=== PATIENT | male | born 1970 | race Caucasian/White ===

== ENCOUNTER 2017-09-12 11:39 | Inpatient (IN) | payer MEDICAID, SELFPAY ==
[2017-09-12 11:43] VITALS: BP 134/68; PULSE 123; RESP 24; TEMP 36.7; O2SAT 93; BMI 80.4
[2017-09-12 11:53] VITALS: BP 131/64; PULSE 123; RESP 18; O2SAT 96
[2017-09-12] MEDS: 0.9% Normal Saline 1,000 ML 15 ML IV (12:50)
[2017-09-12 12:57] LABS: Absolute Lymphocyte Count 0.67 X10^3/ul (0.83-4.51); Absolute Neutrophil Count 7.6 X10^3/uL (2.0-7.7); Basophil# 0.01 X10^3/uL; Basophil% 0.1 % (0-1); Eosinophil# 0.04 X10^3/uL; Eosinophils% 0.5 % (0-5); Hematocrit 46.2 % (40-54); Hemoglobin 15.1 g/dl (13.0-16.5); Lymphocyte # 0.67 X10^3/ul (4.0); Lymphocyte % 7.6 % (19-41); Mean Corp Hgb Conc 32.7 g/gl (32-36); Mean Corpuscular Hgb 28.3 pg (27.0-32.0); Mean Corpuscular Volume 86.7 fL (80-94); Mean Platelet Vol. 9.1 fl (6.2-12.0); Monocyte# 0.42 X10^3/uL; Monocyte% 4.8 % (0-10); Neutrophil # 7.61 X10^3/uL (2.7-7.7); Neutrophil % 86.9 % (47-70); POSITIVE COUNT NO; POSITIVE DIFFERENTIAL NO; POSITIVE MORPHOLOGY NO; Platelet Count 179 K/mm3 (150-450); RBC Distribution Width CV 14.9 % (11.6-14.6); RBC Distribution Width SD 47.2 fl (35.1-43.9); Red Blood Count 5.33 M/mm3 (4.6-6.2); White Blood Count 8.8 K/mm3 (4.4-11.0)
[2017-09-12 13:13] LABS: Anion Gap 9 (5-15); BUN 15 mg/dL (7-18); BUN/Creat Ratio 18.7 RATIO (10-20); Calcium,Total 8.9 mg/dL (8.5-10.1); Chloride 96 mmol/L (98-107); EST Glomerular Filtration Rate 111 mL/min (>60); Est Glom Filt Rate - Afr Amer 134 mL/min (>60); Estimated Creatinine Clearance 121.67 ml/min; Glucose 66 mg/dL (74-106); Potassium 3.5 mmol/L (3.5-5.1); Sodium Level 141 mmol/L (136-145)
[2017-09-12] MEDS: Clindamycin 600 MG/50 ML BAG 100 MG IV (13:18)
[2017-09-12] MEDS: Dextrose 50%-Water 25 GM/50 ML DISP.SYRIN IV (13:54)
[2017-09-12 14:36] VITALS: BP 133/91; PULSE 102; RESP 20; O2SAT 94
--- NOTE | 2017-09-12 14:46 | NURSING ---
DR ARTHUR FOR DR LEMOS
[2017-09-12 15:00] VITALS: BP 143/86; PULSE 92; RESP 25; TEMP 36.7; O2SAT 98
[2017-09-12 15:10] LABS: Bedside Glucose 114 mg/dL (70-110)
--- NOTE | 2017-09-12 15:15 | PCM.HP.STD ---
Problem List (1) Debility Status: Acute (2) Candidiasis Status: Acute (3) Cellulitis Status: Acute History of Present Illness Date of Admission: 09/12/17 Chief Complaint: weakness The patient is a 46 year old M presents to the hospital with weakness. Patient's performance status at baseline is very poor with the patient is only able to ambulate back and forth to bathroom but he requires assistance doing that. Patient was on the toilet today and was on there for 3040 minutes and his legs felt numb and he was unable to get up on his own. EMS was called and patient was brought to the hospital. In the emergency room patient was found to have erythema on his left leg and did receive clindamycin for suspected cellulitis. Patient does state that he lies primarily on his left side. Patient is for the most part bedbound. [] Past Medical History Past Medical History (Chronic Problems): Chronic Problems Polysubstance abuse (Chronic) Alcohol abuse (Chronic) Morbid obesity with BMI of 70 and over, adult (Chronic) BMI 82 260 kg Chronic acquired lymphedema (Chronic) Medical History: Medical History (Last Updated 09/12/17 @ 15:18 by Patrick Andrews DO) Lymphedema I89.0 Morbid obesity E66.01 Allergies No Known Allergies Allergy (Verified 09/12/17 11:42) Home Medications: Ambulatory Orders Medication Instructions Recorded Cholecalciferol (Vitamin D3) 50,000 units PO QWEEK 09/12/17 [Vitamin D3] Surgical History: no surgical history Psychiatric History: No pertinent psych hx Smoking Status: Former smoker - *Family History Maternal History Items: No pertinent history, - - no heart disease Paternal History Items: No pertinent history Review of Systems Constitutional: Reports: Chills. Denies: Anorexia, Fever Eyes: Denies: Blurred vision, Double vision HEENT: Denies: Head Aches, Sinus Congestion, Sinus Drainage Cardiovascular: Denies: Chest Pain, Palpitations Respiratory: Reports: - - Is noted to snore. Questionable apneic episodes have been witnessed by other family members.. Denies: Cough, Shortness of breath at rest, Sputum production Gastrointestinal: Denies: Abdominal Pain, Nausea, Vomiting Genitourinary: Denies: Dysuria Musculoskeletal: Reports: - - left leg pain Skin: Reports: - - lymphedema and chronic skin changes of bilateral lower extremitie Neurological: Denies: Balance problems, Blurred vision, Double vision Psychiatric: Denies: Anxiety, Depression Hematologic/ Lymphatic: Denies: Easy Bruising, Easy Bleeding, Hx of blood clot VTE Information - Inpt Only VTE Present on Admission: No VTE Pharm Prophylaxis ordered?: Yes Patient Problems: Active and Suspected Problems Debility (Acute) Candidiasis (Acute) - Physical Exam General: Alert, Cooperative, No apparent distress, - - Appears much older than stated age HEENT: Atraumatic, Normocephalic Oral: Moist Mucosa, No Gingival or Mucosal Lesions/ Ulcerations Neck: No Nodes, Thyroid Normal Size and Texture Lungs: Clear to auscultation, Normal air movement, No rhonchi, No wheeze Cardiovascular: Regular rate, Regular Rhythm, Normal S1, Normal S2, No murmurs Abdomen: Bowel Sounds Present, Soft, Non Tender, Non-Distended, No Hepato-splenomegaly Extremities: No Calf Tenderness, Edema Skin: - - Appears to be a stage II pressure ulcer over his left lateral leg. Patient was unable to turn on his side given his girth and frailty so was unable to appreciate that. I cannot say definitively patient had cellulitis or not. Patient had candidal infections under his pannus, inguinal folds and axillae. Lichenification of his lower extremities bilaterally with some malodorous component. Musculoskeletal: No Muscle Wasting, Tenderness - Diffusely in his legs. Neurological: Neuro grossly intact, Sensory exam intact to light touch and pain Psych/Mental Status: Normal Affect, Appropriate Vital Signs Temp Pulse Resp BP Pulse Ox 36.7 C 92 25 H 143/86 H 98 09/12/17 15:00 09/12/17 15:00 09/12/17 15:00 09/12/17 15:09/12/17 15:00 Oxygen Flow Rate (L/min) 4 Oxygen Delivery Method Nasal Cannula Weight: 254.4 kg Body Mass Index (BMI) 80.4 Finger Stick Blood Glucose 114 Laboratory Tests Past 24 Hrs 09/12/17 09/12/17 12:40 12:40 WBC 8.8 RBC 5.33 Hgb 15.1 Hct 46.2 MCV 86.7 MCH 28.3 MCHC 32.7 RDW 14.9 H RDW Differential 47.2 H Plt Count 179 MPV 9.1 Immature Gran % (Auto) 0.100 Neut % (Auto) 86.9 H Lymph % (Auto) 7.6 L [place] % (Auto) 4.8 Eos % (Auto) 0.5 Baso % (Auto) 0.1 Absolute Neuts (auto) 7.6 Absolute Lymphs (auto) 0.67 L Total Counted Not Reportable Sodium 141 Potassium 3.5 Chloride 96 L Carbon Dioxide 36.0 H Anion Gap 9 BUN 15 Creatinine 0.80 Estim Creat Clear Calc 121.67 Est GFR (MDRD) Af Amer 134 Est GFR (MDRD) Non-Af 111 BUN/Creatinine Ratio 18.7 Glucose 66 L Calcium 8.9 POC Glucose 09/12/17 15:07 POC Glucose 114 H Assessment/Plan All Active Problems Debility (Acute) Candidiasis (Acute) Cellulitis and abscess of leg (Acute) Cellulitis (Acute) 1. Left lower extremity cellulitis This is presumed but this certainly could just be a stage II pressure ulcer Patient received clindamycin in the emergency room. I will continue with that but if it appears that this is just more of a pressure ulcer then I would discontinue antibiotics altogether. 2. Suspected stage II pressure ulcer of the left lateral leg Patient is essentially bedbound and primarily confined himself to lying on his left side. Given the area that is concerning for pressure ulcer is by him laying on his side and also his massive size Try to turn and reposition every 2 hours and certainly cumbersome given his large size. Wound care 3. Bilateral lymphedema of lower extremities Patient also has significant lichenification of his lower extremities as well Patient states that he has had numerous treatments in and be enrolled in inpatient program for this but to no avail through his insurance Consult wound care for further recommendations My feeling that patient may have some underlying right heart failure possibly related with untreated sleep apnea that may be potential underlying cause of his lymphedema. 4. Morbid obesity Complicating care. Questionable motivation for patient to actually get better and have follow-ups. Though some this is limited just given his poor performance status. Suspect patient has underlying sleep apnea and recommended a sleep study which is previously been recommended for him patient states that he is simply not gotten around to it. I doubt this is a new recommendation but patient makes it appears of the chest from the just happened just recently. 5. Debility and failure to thrive Spoke with patient about physical and occupational therapies. Patient is just too weak to return home at this time. He does express interest in going to a short-term shelter facility for further rehab. 6. DVT prophylaxis with Lovenox Code Visit Inpatient E&M: 27445 Init Hosp L3
--- NOTE | 2017-09-12 15:17 | NURSING ---
MED SURG LLE CELLULITIS SANDHYA
--- NOTE | 2017-09-12 15:25 | HP.PCM_ITS ---
Problem List (1) Debility Status: Acute (2) Candidiasis Status: Acute (3) Cellulitis Status: Acute History of Present Illness Date of Admission: 09/12/17 Chief Complaint: weakness The patient is a 46 year old M presents to the hospital with weakness. Patient' s performance status at baseline is very poor with the patient is only able to ambulate back and forth to bathroom but he requires assistance doing that. Patient was on the toilet today and was on there for 3040 minutes and his legs felt numb and he was unable to get up on his own. EMS was called and patient was brought to the hospital. In the emergency room patient was found to have erythema on his left leg and did receive clindamycin for suspected cellulitis. Patient does state that he lies primarily on his left side. Patient is for the most part bedbound. [] Past Medical History Past Medical History (Chronic Problems): Chronic Problems Polysubstance abuse (Chronic) Alcohol abuse (Chronic) Morbid obesity with BMI of 70 and over, adult (Chronic) BMI 82 260 kg Chronic acquired lymphedema (Chronic) Medical History: Medical History (Last Updated 09/12/17 @ 15:18 by Patrick Andrews DO) Lymphedema I89.0 Morbid obesity E66.01 Allergies No Known Allergies Allergy (Verified 09/12/17 11:42) Home Medications: Ambulatory Orders Medication Instructions Recorded Cholecalciferol (Vitamin D3) 50,000 units PO QWEEK 09/12/17 [Vitamin D3] Surgical History: no surgical history Psychiatric History: No pertinent psych hx Smoking Status: Former smoker - *Family History Maternal History Items: No pertinent history, - - no heart disease Paternal History Items: No pertinent history Review of Systems Constitutional: Reports: Chills. Denies: Anorexia, Fever Eyes: Denies: Blurred vision, Double vision HEENT: Denies: Head Aches, Sinus Congestion, Sinus Drainage Cardiovascular: Denies: Chest Pain, Palpitations Respiratory: Reports: - - Is noted to snore. Questionable apneic episodes have been witnessed by other family members.. Denies: Cough, Shortness of breath at rest, Sputum production Gastrointestinal: Denies: Abdominal Pain, Nausea, Vomiting Genitourinary: Denies: Dysuria Musculoskeletal: Reports: - - left leg pain Skin: Reports: - - lymphedema and chronic skin changes of bilateral lower extremitie Neurological: Denies: Balance problems, Blurred vision, Double vision Psychiatric: Denies: Anxiety, Depression Hematologic/ Lymphatic: Denies: Easy Bruising, Easy Bleeding, Hx of blood clot VTE Information - Inpt Only VTE Present on Admission: No VTE Pharm Prophylaxis ordered?: Yes Patient Problems: Active and Suspected Problems Debility (Acute) Candidiasis (Acute) - Physical Exam General: Alert, Cooperative, No apparent distress, - - Appears much older than stated age HEENT: Atraumatic, Normocephalic Oral: Moist Mucosa, No Gingival or Mucosal Lesions/ Ulcerations Neck: No Nodes, Thyroid Normal Size and Texture Lungs: Clear to auscultation, Normal air movement, No rhonchi, No wheeze Cardiovascular: Regular rate, Regular Rhythm, Normal S1, Normal S2, No murmurs Abdomen: Bowel Sounds Present, Soft, Non Tender, Non-Distended, No Hepato- splenomegaly Extremities: No Calf Tenderness, Edema Skin: - - Appears to be a stage II pressure ulcer over his left lateral leg. Patient was unable to turn on his side given his girth and frailty so was unable to appreciate that. I cannot say definitively patient had cellulitis or not. Patient had candidal infections under his pannus, inguinal folds and axillae. Lichenification of his lower extremities bilaterally with some malodorous component. Musculoskeletal: No Muscle Wasting, Tenderness - Diffusely in his legs. Neurological: Neuro grossly intact, Sensory exam intact to light touch and pain Psych/Mental Status: Normal Affect, Appropriate Vital Signs Temp Pulse Resp BP Pulse Ox 36.7 C 92 25 H 143/86 H 98 09/12/17 15:00 09/12/17 15:00 09/12/17 15:00 09/12/17 15:09/12/17 15:00 Oxygen Flow Rate (L/min) 4 Oxygen Delivery Method Nasal Cannula Weight: 254.4 kg Body Mass Index (BMI) 80.4 Finger Stick Blood Glucose 114 Laboratory Tests Past 24 Hrs 09/12/17 09/12/17 12:40 12:40 WBC 8.8 RBC 5.33 Hgb 15.1 Hct 46.2 MCV 86.7 MCH 28.3 MCHC 32.7 RDW 14.9 H RDW Differential 47.2 H Plt Count 179 MPV 9.1 Immature Gran % (Auto) 0.100 Neut % (Auto) 86.9 H Lymph % (Auto) 7.6 L [place] % (Auto) 4.8 Eos % (Auto) 0.5 Baso % (Auto) 0.1 Absolute Neuts (auto) 7.6 Absolute Lymphs (auto) 0.67 L Total Counted Not Reportable Sodium 141 Potassium 3.5 Chloride 96 L Carbon Dioxide 36.0 H Anion Gap 9 BUN 15 Creatinine 0.80 Estim Creat Clear Calc 121.67 Est GFR (MDRD) Af Amer 134 Est GFR (MDRD) Non-Af 111 BUN/Creatinine Ratio 18.7 Glucose 66 L Calcium 8.9 POC Glucose 09/12/17 15:07 POC Glucose 114 H Assessment/Plan All Active Problems Debility (Acute) Candidiasis (Acute) Cellulitis and abscess of leg (Acute) Cellulitis (Acute) 1. Left lower extremity cellulitis * This is presumed but this certainly could just be a stage II pressure ulcer * Patient received clindamycin in the emergency room. I will continue with that but if it appears that this is just more of a pressure ulcer then I would discontinue antibiotics altogether. 2. Suspected stage II pressure ulcer of the left lateral leg * Patient is essentially bedbound and primarily confined himself to lying on his left side. Given the area that is concerning for pressure ulcer is by him laying on his side and also his massive size * Try to turn and reposition every 2 hours and certainly cumbersome given his large size. * Wound care 3. Bilateral lymphedema of lower extremities * Patient also has significant lichenification of his lower extremities as well * Patient states that he has had numerous treatments in and be enrolled in inpatient program for this but to no avail through his insurance * Consult wound care for further recommendations * My feeling that patient may have some underlying right heart failure possibly related with untreated sleep apnea that may be potential underlying cause of his lymphedema. 4. Morbid obesity * Complicating care. * Questionable motivation for patient to actually get better and have follow- ups. Though some this is limited just given his poor performance status. * Suspect patient has underlying sleep apnea and recommended a sleep study which is previously been recommended for him patient states that he is simply not gotten around to it. I doubt this is a new recommendation but patient makes it appears of the chest from the just happened just recently. 5. Debility and failure to thrive * Spoke with patient about physical and occupational therapies. * Patient is just too weak to return home at this time. He does express interest in going to a short-term jail facility for further rehab. 6. DVT prophylaxis with Lovenox Code Visit Inpatient E&M: [id number] Init Hosp L3
--- NOTE | 2017-09-12 15:49 | ECHOCS_ITS ---
Reason For Study: Edema Procedure This was a 2D Doppler, Color Flow transthoracic echocardiogram. The study was technically difficult. The study was technically limited. The exam was of poor technical quality due to Patient body habitus. Exam performed portable in patient room. Left Ventricle Normal LV size. Left ventricular systolic function is normal. Technical difficulties preclude assesment of WMA. Right Ventricle The right ventricle is not well visualized. Atria The left atrium is mildly enlarged. Normal right atrium. Mitral Valve Mitral valve not well visualized. Tricuspid Valve The tricuspid valve is not well visualized. Aortic Valve The aortic valve is not well visualized. Pulmonic Valve The pulmonic valve is not well visualized. Great Vessels Normal aortic root. Pericardium/Pleural No pericardial effusion. Medication Definity0.8ml given slow IV push to enhance endocardial definition. MMode/2D Measurements & Calculations LAV(MOD-bp): 64.0 ml LAV(MOD-bp) Indexed: 19.8 ml/m2 LA A4 area: 24.2 cm2 RA A4 area: 14.0 cm2 LAV(MOD-sp2): 53.7 ml LAV(MOD-sp4): 69.1 ml Doppler Measurements & Calculations MV E max yosvany: 86.7 cm/sec Lat Peak E' Yosvany: 13.7 cm/sec Med Peak E' Yosvany: 11.4 cm/sec MV A max yosvany: 58.9 cm/sec E/E' lat: 6.3 E/E' med: 7.6 MV E/A: 1.5 Ao V2 max: 142.2 cm/sec LV V1 max: 115.9 cm/sec PA V2 max: 85.2 cm/sec Ao max P.1 mmHg LV V1 max P.4 mmHg Ao V2 mean: 108.1 cm/sec Ao mean P.1 mmHg Ao V2 VTI: 27.7 cm Interpretation Summary Normal LV size. Left ventricular systolic function is normal. Technical difficulties preclude assesment of WMA Contrast injection was performed. Ordering Physician: Patrick Andrews Referring Physician: Sheree Cedillo Performed By: Ashley Jin RDCS, RVT
[2017-09-12 15:55] VITALS: BMI 80.3; BMI 80.4
[2017-09-12 16:17] VITALS: BP 138/79; PULSE 100; RESP 20; TEMP 36.8; O2SAT 95
[2017-09-12] MEDS: Clindamycin 900 MG/50 ML BAG 75 MG IV ×2 (17:17→21:57)
[2017-09-12] MEDS: 0.9% NaCl Peripheral Flush Adult/Peds IV (17:19)
[2017-09-12 17:20] LABS: Bedside Glucose 111 mg/dL (70-110)
--- NOTE | 2017-09-12 17:25 | ED.DCSUM_ITS ---
- ER Visit Summary Date of Service: 09/12/17 Chief Complaint: Cellulitis History of Present Illness: The patient is a 46 M who presents complaining of cellulitis to the lateral left thigh for the past couple days. He states he had some sweats last night but did not measure a fever. Patient is a history of morbid obesity with chronic lymphedema to his legs. Physical Examination: Vital signs are significant for heart rate of 123, otherwise unremarkable. Patient is lying in bed in no acute distress. Head neck examination is unremarkable. Heart is tachycardic and regular. Lung sounds are diminished bilaterally at the bases. Upper extremity examination reveals erythema to the left axilla consistent with with Yuli. Lower extremity examination reveals erythema and abrasions to the lateral left thigh consistent with cellulitis. Patient has chronic lymphedema with chronic skin thickening of his legs. Test Results: CBC was normal white count with a left shift. Chemistry studies significant for a glucose of 66. His bicarb is 36. Emergency Department Course and Treatment: Patient was ordered blood cultures and IV clindamycin. Upon completion of his blood work D50 was given IV. Patient will be admitted for further evaluation and treatment. Treatment Plan: [] Disposition: Admit Impression: 1. Cellulitis left lower extremity 2. Yeast skin infection left axilla This note was generated with [employer] dictation software. It may contain incorrect words, spelling, and punctuation that were not noted in review of the chart prior to signing ED Disposition - Plan for ED Patient: Disposition: Acute Care [facility] Chief Complaint: Cellulitis
[2017-09-12 21:24] VITALS: BP 146/76; PULSE 96; RESP 18; TEMP 36.7; O2SAT 94
[2017-09-12] MEDS: Menthol/Lanolin/Calamine/Znox 113 GM Tube 1 APPLIC TOPICAL (21:56)
[2017-09-12] MEDS: Nystatin Ointment 1 APPLIC TOPICAL (21:58)
[2017-09-12 23:31] LABS: Bedside Glucose 113 mg/dL (70-110)
[2017-09-13 03:45] VITALS: BP 142/75; PULSE 98; RESP 18; TEMP 36.5; O2SAT 94
[2017-09-13] MEDS: Clindamycin 900 MG/50 ML BAG 75 MG IV ×3 (05:51→21:14)
[2017-09-13 06:20] LABS: Bedside Glucose 102 mg/dL (70-110)
[2017-09-13 09:45] VITALS: BP 116/60; PULSE 97; RESP 18; TEMP 36.6; O2SAT 96
--- NOTE | 2017-09-13 09:53 | PCM.PN.HOSP ---
Patient Problems: Active and Suspected Problems (Last Updated 09/12/17 @ 15:18 by Patrick Andrews DO) Debility (Acute) Candidiasis (Acute) Subjective: No new events. Concerned about getting lymphedema clinic to see him. Vitals/I&O's: Vital Signs Temp Pulse Resp BP Pulse Ox 36.5 C L 98 18 142/75 H 94 09/13/17 03:45 09/13/17 03:45 09/13/17 03:45 09/13/17 03:45 09/13/17 03:45 Oxygen Flow Rate (L/min) 3 Oxygen Delivery Method Nasal Cannula Weight: 254.012 kg Body Mass Index (BMI) 80.3 Finger Stick Blood Glucose 114 Intake and Output for Last 24 Hours 09/11/17 09/12/17 09/13/17 23:59 23:59 23:59 Intake Total 724 / 724 Output Total 550 / 550 Balance 174 / 174 General: Alert, No apparent distress HEENT: Atraumatic, Normocephalic Oral: Moist Mucosa, No Gingival or Mucosal Lesions/ Ulcerations Neck: No Nodes, Thyroid Normal Size and Texture Lungs: Clear to auscultation, Normal air movement, No rhonchi, No wheeze Cardiovascular: Regular rate, Regular Rhythm, Normal S1, Normal S2 Abdomen: Non Tender, Non-Distended, Obese Extremities: No Calf Tenderness, Edema Skin: - - extensive lichenification of lower extremities. acanthosis of dorsum of feet bilaterally. tracie of axilla and under pannus. Psych/Mental Status: Appropriate, Flat Affect Laboratory Results 09/12/17 16:51: POC Glucose 111 H 09/12/17 21:56: POC Glucose 113 H 09/13/17 06:12: POC Glucose 102 Current Medications Calamine/Phenol (Calmoseptine Ointment) 1 applic TOPICAL 4X/DAY IZABEL PRN Reason: Protocol Last Admin: 09/12/17 21:56 Dose: 1 applic Dextrose (D50w Syringe) 0 gm IV X1 PRN; Protocol PRN Reason: Hypoglycemia Enoxaparin Sodium (Lovenox) 40 mg SC DAILY@1000 IZABEL Ergocalciferol (Vitamin D) 50,000 unit PO QWEEK IZABEL Glucagon () 1 mg IM .X1 PRN PRN Reason: Hypoglycemia Clindamycin Phosphate (Cleocin) 900 mg in 50 mls @ 75 mls/hr IV Q8 IZABEL Last Admin: 09/13/17 05:51 Dose: 75 mls/hr Magnesium Hydroxide (Milk Of Magnesia) 30 ml PO DAILY PRN PRN PRN Reason: Constipation Nystatin (Mycostatin) 1 applic TOPICAL BID IZABEL PRN Reason: Protocol Last Admin: 09/12/17 21:58 Dose: 1 applic Sodium Chloride () 5 - 30 ml IV UD PRN PRN Reason: SALINE FLUSH Last Admin: 09/12/17 17:19 Dose: 10 ml Medical Necessity - Tobacco Use Smoking Status: Former smoker Assessment/Plan All Active Problems (Last Updated 09/12/17 @ 15:18 by Patrick Andrews DO) Cellulitis (Ruled-out) Cellulitis and abscess of leg (Ruled-out) Debility (Acute) Candidiasis (Acute) 1. Bilateral lymphedema of lower extremities Patient also has significant lichenification of his lower extremities as well Patient states that he has had numerous treatments in and be enrolled in inpatient program for this but to no avail through his insurance Consult wound care for further recommendations My feeling that patient may have some underlying right heart failure possibly related with untreated sleep apnea that may be potential underlying cause of his lymphedema. 2. Morbid obesity Complicating care. Questionable motivation for patient to actually get better and have follow-ups. Though some this is limited just given his poor performance status. Suspect patient has underlying sleep apnea and recommended a sleep study which is previously been recommended for him patient states that he is simply not gotten around to it. I doubt this is a new recommendation but patient makes it appears of the chest from the just happened just recently. 3. Debility and failure to thrive Spoke with patient about physical and occupational therapies. Patient is just too weak to return home at this time. He does express interest in going to a short-term care home facility for further rehab. 4. DVT prophylaxis with Lovenox 5. Left lower extremity cellulitis Ruled out No evidence of any ceullitis on left lateral thigh. Now that I am better able to visualize his left leg I see no evidence of cellulitis nor pressure ulcer. DC antibiotics. Discussed with patient and stated no cellulitis, but stated that he could be at risk at a a later time, given his lichenification and lymphedema. 6. Suspected stage II pressure ulcer of the left lateral leg No pressure ulcer identified--ruled out. Though at risk given his bed-bound status, poor performance status, morbid obesity. Code Visit Inpatient E&M: 91012 Subs Hosp L2
--- NOTE | 2017-09-13 09:59 | PN_ITS ---
Patient Problems: Active and Suspected Problems (Last Updated 09/12/17 @ 15:18 by Patrick Andrews DO ) Debility (Acute) Candidiasis (Acute) Subjective: No new events. Concerned about getting lymphedema clinic to see him. Vitals/I&O's: Vital Signs Temp Pulse Resp BP Pulse Ox 36.5 C L 98 18 142/75 H 94 09/13/17 03:45 09/13/17 03:45 09/13/17 03:45 09/13/17 03:45 09/13/17 03:45 Oxygen Flow Rate (L/min) 3 Oxygen Delivery Method Nasal Cannula Weight: 254.012 kg Body Mass Index (BMI) 80.3 Finger Stick Blood Glucose 114 Intake and Output for Last 24 Hours 09/11/17 09/12/17 09/13/17 23:59 23:59 23:59 Intake Total 724 / 724 Output Total 550 / 550 Balance 174 / 174 General: Alert, No apparent distress HEENT: Atraumatic, Normocephalic Oral: Moist Mucosa, No Gingival or Mucosal Lesions/ Ulcerations Neck: No Nodes, Thyroid Normal Size and Texture Lungs: Clear to auscultation, Normal air movement, No rhonchi, No wheeze Cardiovascular: Regular rate, Regular Rhythm, Normal S1, Normal S2 Abdomen: Non Tender, Non-Distended, Obese Extremities: No Calf Tenderness, Edema Skin: - - extensive lichenification of lower extremities. acanthosis of dorsum of feet bilaterally. tracie of axilla and under pannus. Psych/Mental Status: Appropriate, Flat Affect Laboratory Results 09/12/17 16:51: POC Glucose 111 H 09/12/17 21:56: POC Glucose 113 H 09/13/17 06:12: POC Glucose 102 Current Medications Calamine/Phenol (Calmoseptine Ointment) 1 applic TOPICAL 4X/DAY IZABEL PRN Reason: Protocol Last Admin: 09/12/17 21:56 Dose: 1 applic Dextrose (D50w Syringe) 0 gm IV X1 PRN; Protocol PRN Reason: Hypoglycemia Enoxaparin Sodium (Lovenox) 40 mg SC DAILY@1000 IZABEL Ergocalciferol (Vitamin D) 50,000 unit PO QWEEK IZABEL Glucagon () 1 mg IM .X1 PRN PRN Reason: Hypoglycemia Clindamycin Phosphate (Cleocin) 900 mg in 50 mls @ 75 mls/hr IV Q8 IZABEL Last Admin: 09/13/17 05:51 Dose: 75 mls/hr Magnesium Hydroxide (Milk Of Magnesia) 30 ml PO DAILY PRN PRN PRN Reason: Constipation Nystatin (Mycostatin) 1 applic TOPICAL BID IZABEL PRN Reason: Protocol Last Admin: 09/12/17 21:58 Dose: 1 applic Sodium Chloride () 5 - 30 ml IV UD PRN PRN Reason: SALINE FLUSH Last Admin: 09/12/17 17:19 Dose: 10 ml Medical Necessity - Tobacco Use Smoking Status: Former smoker Assessment/Plan All Active Problems (Last Updated 09/12/17 @ 15:18 by Patrick Andrews DO) Cellulitis (Ruled-out) Cellulitis and abscess of leg (Ruled-out) Debility (Acute) Candidiasis (Acute) 1. Bilateral lymphedema of lower extremities * Patient also has significant lichenification of his lower extremities as well * Patient states that he has had numerous treatments in and be enrolled in inpatient program for this but to no avail through his insurance * Consult wound care for further recommendations * My feeling that patient may have some underlying right heart failure possibly related with untreated sleep apnea that may be potential underlying cause of his lymphedema. 2. Morbid obesity * Complicating care. * Questionable motivation for patient to actually get better and have follow- ups. Though some this is limited just given his poor performance status. * Suspect patient has underlying sleep apnea and recommended a sleep study which is previously been recommended for him patient states that he is simply not gotten around to it. I doubt this is a new recommendation but patient makes it appears of the chest from the just happened just recently. 3. Debility and failure to thrive * Spoke with patient about physical and occupational therapies. * Patient is just too weak to return home at this time. He does express interest in going to a short-term senior living facility for further rehab. 4. DVT prophylaxis with Lovenox 5. Left lower extremity cellulitis * Ruled out * No evidence of any ceullitis on left lateral thigh. * Now that I am better able to visualize his left leg I see no evidence of cellulitis nor pressure ulcer. * DC antibiotics. * Discussed with patient and stated no cellulitis, but stated that he could be at risk at a a later time, given his lichenification and lymphedema. 6. Suspected stage II pressure ulcer of the left lateral leg * No pressure ulcer identified--ruled out. * Though at risk given his bed-bound status, poor performance status, morbid obesity. Code Visit Inpatient E&M: 19257 Subs Hosp L2
--- NOTE | 2017-09-13 10:05 | NURSING ---
Was asked to see patient for numerous skin issues. in to assess patient with Dr Andrews. there is some redness noted to the left abdomen and thigh, but Dr Andrews states this has improved. appears to be from dependent edema rather than cellulitis. pt states he always lays on his left side at home because it is easier for him. when asked how often patient baths he states not often. this nurse asked if it was weekly and patient states not even that often. there is a large brown crusted area to the left knee and cordero. was able to remove a small amount, but still a large area noted. there is some dry thick brown skin also noted to the lower abdomen with a large skin tag noted. there is some redness, moisture, and odor noted to the abdominal folds which appears to be tracie. nystatin powder ordered. assisted INOCENTE Sykes in bathing patient. pt tolerated well. patient positioned onto his right side to keep some pressure off his left since that is where he spends most of his time.will continue to monitor.
[2017-09-13] MEDS: Menthol/Lanolin/Calamine/Znox 113 GM Tube 1 APPLIC TOPICAL ×4 (10:45→21:09)
[2017-09-13] MEDS: Enoxaparin 40 MG/0.4 ML Syringe SC (10:46)
[2017-09-13 11:06] LABS: Bedside Glucose 166 mg/dL (70-110)
--- NOTE | 2017-09-13 11:17 | CASEMGMT ---
Social Work Assessment: Referral Date: 09/13/2017 Date of Assessment: 09/13/2017 Reason for consult: SNF Informant: MD/ Personal Status: SW met with pt to discuss discharge planning. Pt alert and orientated x4. SW introduced self and role at [facility]. Pt states that he lives with his mom in a one story home. Pt states that there are 1.5 steps to enter his home and previously required assistance with steps. Pt states that he was dependent with ADLs. Pt denied DME. Pt states that he is interested in SNF placement at discharge. Pt states that his first choice would be [facility] and then second choice would be [facility]. SW explained referral process and pre-cert process. Pt states understanding and denied additional needs or concerns at this time. Substance Abuse Hx: Pt states you should know this by know since I've been asked this so many times. Per H+P, pt has history of polysubstance abuse and alcohol abuse. Mental Health Hx: Pt denied SW placed a call to Marsha at [facility] and per Marsha she is able to get Bariatric beds. SW informed Marsha of referral and faxed referral to Marsha at [facility]. Plan: [facility] pending acceptance and pre-cert Apoorva Tuttle SCHOOL TRAFFIC SUPERVISOR, WORKING SUPERVISOR
--- NOTE | 2017-09-13 14:23 | CASEMGMT ---
Addendum entered by Apoorva Tuttle 09/13/17 15:51: rIis asked this worker about pt's substance abuse hx. SW in to speak with pt regarding substance abuse hx. PT denied any polysubstance abuse hx but states that he recently did use alcohol. Pt states that his usage varies and he can go from drinking it everyday to not drinking at times. Pt states that when he does drink its about a fifth of vodka. RAVEN updated Iris at [facility] of this. Iris states that this is fine and she has submitted for pre-cert. Original Note: Addendum entered by Apoorva Tuttle 09/13/17 15:30: Iris at [facility] submitted for pre-cert Original Note: Addendum entered by Apoorva Tuttle 09/13/17 15:26: SW received message from Iris at [facility] stating that they are able to accept pt. RAVEN placed a call back to Iris to inform her to submit for pre-cert. Plan: [facility] pending pre-cert Original Note: Social Work Note SW received call from Marsha at [facility] stating that they are unable to accept pt. RAVEN faxed referral to Iris at [facility]. SW placed a call to Iris and informed her of referral. Iris states that she is able to get bariatric beds and will look over referral. Plan: [facility] pending acceptance and pre-cert Apoorva Tuttle SOCIAL WORK JOB TITLES, ASBESTOS MICROSCOPIST
[2017-09-13 15:45] VITALS: BP 125/65; PULSE 94; RESP 18; TEMP 37; O2SAT 96
--- NOTE | 2017-09-13 16:14 | CASEMGMT ---
Social Work Note RAVEN in to update pt. SW informed pt that [facility] is unable to accept pt but that [facility] has accepted pt. Pt asked this worker why [facility] didn't accept him. This worker informed pt that this worker didn't receive a reason from [facility] as to why they were unable to accept pt. Pt kept asking this worker why he wasn't accepted and this worker spent much time telling him that this worker didn't know the reason as nursing homes don't always provide a reason. Pt asked this worker to keep on [facility] about referral. SW informed pt that [facility] already denied pt for rehabilitation services at discharge but that [facility] has accepted pt and will be able to provide pt rehabilitation services at discharge. Pt states understanding. SW informed pt that this worker still needs to get pre-cert from his insurance before he can go to SNF. Pt states understanding. Plan: [facility] for rehabilitation pending pre-cert Apoorva Tuttle INSTRUCTOR TRAINER CANINE SERVICE, ELECTRO MECHANICAL ENGINEER
[2017-09-13] MEDS: Nystatin Powder 15gm Bottle 1 APPLIC TOPICAL ×2 (16:20→21:09)
[2017-09-13 16:50] LABS: Bedside Glucose 126 mg/dL (70-110)
[2017-09-13 21:22] VITALS: BP 136/57; PULSE 97; RESP 18; TEMP 36.6; O2SAT 95
[2017-09-13 22:10] LABS: Bedside Glucose 150 mg/dL (70-110)
[2017-09-14] MEDS: Clindamycin 900 MG/50 ML BAG 75 MG IV (06:17)
[2017-09-14 06:18] VITALS: BP 142/73; PULSE 92; RESP 18; TEMP 36.4; O2SAT 98
--- NOTE | 2017-09-14 06:34 | NURSING ---
ATTEMPTED X3 TO GET AM ACCUCHECK UNABLE TO GET RESULT PT REFUSED FURTHER STICKS
[2017-09-14] MEDS: Menthol/Lanolin/Calamine/Znox 113 GM Tube 1 APPLIC TOPICAL ×4 (10:28→22:06)
[2017-09-14] MEDS: Enoxaparin 40 MG/0.4 ML Syringe SC (10:29)
[2017-09-14] MEDS: Nystatin Powder 15gm Bottle 1 APPLIC TOPICAL ×2 (10:29→22:07)
[2017-09-14 11:36] LABS: Bedside Glucose 116 mg/dL (70-110)
--- NOTE | 2017-09-14 11:37 | PN_ITS ---
Patient Problems: Active and Suspected Problems (Last Updated 09/12/17 @ 15:18 by Patrick Andrews DO ) Debility (Acute) Candidiasis (Acute) Subjective: No new events. Vitals/I&O's: Vital Signs Temp Pulse Resp BP Pulse Ox 36.4 C L 92 18 142/73 H 98 09/14/17 06:18 09/14/17 06:18 09/14/17 06:18 09/14/17 06:18 09/14/17 06:18 Oxygen Flow Rate (L/min) 3 Oxygen Delivery Method Nasal Cannula Weight: 254.012 kg Body Mass Index (BMI) 80.3 Finger Stick Blood Glucose 114 Intake and Output for Last 24 Hours 09/12/17 09/13/17 09/14/17 23:59 23:59 23:59 Intake Total 724 / 724 693 / 693 Output Total 550 / 550 800 / 800 Balance 174 / 174 -107 / -107 General: Alert, No apparent distress HEENT: Atraumatic, Normocephalic Oral: Moist Mucosa, No Gingival or Mucosal Lesions/ Ulcerations Neck: No Nodes, Thyroid Normal Size and Texture Lungs: Clear to auscultation, Normal air movement, No rhonchi, No wheeze Cardiovascular: Regular rate, Regular Rhythm, Normal S1, Normal S2, No murmurs Abdomen: Bowel Sounds Present, Soft, Non Tender, Non-Distended, Obese Extremities: Edema, - - lymphedema w lichenification acanothosis on dorsum of feet. Psych/Mental Status: Normal Affect, Appropriate Laboratory Results 09/13/17 16:40: POC Glucose 126 H 09/13/17 21:55: POC Glucose 150 H Current Medications Calamine/Phenol (Calmoseptine Ointment) 1 applic TOPICAL 4X/DAY IZABEL PRN Reason: Protocol Last Admin: 09/14/17 10:28 Dose: 1 applic Dextrose (D50w Syringe) 0 gm IV X1 PRN; Protocol PRN Reason: Hypoglycemia Enoxaparin Sodium (Lovenox) 40 mg SC DAILY@1000 IZABEL Last Admin: 09/14/17 10:29 Dose: 40 mg Ergocalciferol (Vitamin D) 50,000 unit PO QWEEK IZABEL Glucagon () 1 mg IM .X1 PRN PRN Reason: Hypoglycemia Magnesium Hydroxide (Milk Of Magnesia) 30 ml PO DAILY PRN PRN PRN Reason: Constipation Nystatin (Mycostatin Powder) 1 applic TOPICAL BID IZABEL PRN Reason: Protocol Last Admin: 09/14/17 10:29 Dose: 1 applicatio Sodium Chloride () 5 - 30 ml IV UD PRN PRN Reason: SALINE FLUSH Last Admin: 09/12/17 17:19 Dose: 10 ml Medical Necessity - Tobacco Use Smoking Status: Former smoker Assessment/Plan All Active Problems (Last Updated 09/12/17 @ 15:18 by Patrick Andrews DO) Cellulitis (Ruled-out) Cellulitis and abscess of leg (Ruled-out) Debility (Acute) Candidiasis (Acute) 1. Bilateral lymphedema of lower extremities * Patient also has significant lichenification of his lower extremities as well * Patient states that he has had numerous treatments in and be enrolled in inpatient program for this but to no avail through his insurance * Consult wound care for further recommendations * My feeling that patient may have some underlying right heart failure possibly related with untreated sleep apnea that may be potential underlying cause of his lymphedema. 2. Morbid obesity * Complicating care. * Questionable motivation for patient to actually get better and have follow- ups. Though some this is limited just given his poor performance status. * Suspect patient has underlying sleep apnea and recommended a sleep study which is previously been recommended for him patient states that he is simply not gotten around to it. I doubt this is a new recommendation but patient makes it appears of the chest from the just happened just recently. 3. Debility and failure to thrive * Spoke with patient about physical and occupational therapies. * Patient is just too weak to return home at this time. He does express interest in going to a short-term assisted facility for further rehab. * Currently awaiting on feedback from [facility]. [facility] declined. 4. DVT prophylaxis with Lovenox 5. Left lower extremity cellulitis * Ruled out * No evidence of any ceullitis on left lateral thigh. * Now that I am better able to visualize his left leg I see no evidence of cellulitis nor pressure ulcer. * DC antibiotics. * Discussed with patient and stated no cellulitis, but stated that he could be at risk at a a later time, given his lichenification and lymphedema. 6. Suspected stage II pressure ulcer of the left lateral leg * No pressure ulcer identified--ruled out. * Though at risk given his bed-bound status, poor performance status, morbid obesity. Code Visit Inpatient E&M: 95381 Subs Hosp L2
[2017-09-14 12:00] VITALS: BP 148/77; PULSE 95; RESP 16; TEMP 36.8; O2SAT 96
--- NOTE | 2017-09-14 13:42 | CASEMGMT ---
Social Work Note SW faxed updated progress note to Iris at [facility]. No PT/OT updates are available at this time. Plan: [facility] pending pre-cert Apoorva Tuttle WEB ARCHITECT, JEWELRY MECHANIC
[2017-09-14 15:41] LABS: Bedside Glucose 104 mg/dL (70-110)
[2017-09-14 21:39] VITALS: BP 158/97; PULSE 95; RESP 18; TEMP 36.3; O2SAT 95
--- NOTE | 2017-09-14 22:08 | NURSING ---
Patient refusing to turn all the way for this RN to assess his coccyx/back.
[2017-09-14 23:11] LABS: Bedside Glucose 135 mg/dL (70-110)
[2017-09-15 03:39] VITALS: BP 137/67; PULSE 100; RESP 18; TEMP 36.9; O2SAT 95
--- NOTE | 2017-09-15 04:09 | NURSING ---
Pt would roll just enough so this RN could listen to his lungs posteriorly but still would not let this RN assess his buttock/coccyx.
[2017-09-15 07:06] LABS: Bedside Glucose 105 mg/dL (70-110)
[2017-09-15 08:25] VITALS: BP 131/74; PULSE 85; RESP 18; TEMP 36.8; O2SAT 98
--- NOTE | 2017-09-15 08:30 | PN_ITS ---
Patient Problems: Active and Suspected Problems (Last Updated 09/12/17 @ 15:18 by Patrick Andrews DO ) Debility (Acute) Candidiasis (Acute) Vitals/I&O's: Vital Signs Temp Pulse Resp BP Pulse Ox 98.2 F 85 18 131/74 H 98 09/15/17 08:25 09/15/17 08:25 09/15/17 08:25 09/15/17 08:25 09/15/17 08:25 Oxygen Flow Rate (L/min) 3 Oxygen Delivery Method Room Air Weight: 254.012 kg Body Mass Index (BMI) 80.3 Finger Stick Blood Glucose 114 Intake and Output for Last 24 Hours 09/13/17 09/14/17 09/15/17 23:59 23:59 23:59 Intake Total 724 / 724 693 / 693 604 / 604 Output Total 550 / 550 800 / 800 500 / 500 Balance 174 / 174 -107 / -107 104 / 104 Laboratory Results 09/14/17 11:23: POC Glucose 116 H 09/14/17 15:33: POC Glucose 104 09/14/17 21:47: POC Glucose 135 H 09/15/17 06:58: POC Glucose 105 Current Medications Calamine/Phenol (Calmoseptine Ointment) 1 applic TOPICAL 4X/DAY IZABEL PRN Reason: Protocol Last Admin: 09/14/17 22:06 Dose: 1 applic Dextrose (D50w Syringe) 0 gm IV X1 PRN; Protocol PRN Reason: Hypoglycemia Enoxaparin Sodium (Lovenox) 40 mg SC DAILY@1000 IZABEL Last Admin: 09/14/17 10:29 Dose: 40 mg Ergocalciferol (Vitamin D) 50,000 unit PO QWEEK [facility] Glucagon () 1 mg IM .X1 PRN PRN Reason: Hypoglycemia Magnesium Hydroxide (Milk Of Magnesia) 30 ml PO DAILY PRN PRN PRN Reason: Constipation Nystatin (Mycostatin Powder) 1 applic TOPICAL BID IZABEL PRN Reason: Protocol Last Admin: 09/14/17 22:07 Dose: 1 applicatio Sodium Chloride () 5 - 30 ml IV UD PRN PRN Reason: SALINE FLUSH Last Admin: 09/12/17 17:19 Dose: 10 ml Medical Necessity - Tobacco Use Smoking Status: Former smoker Assessment/Plan All Active Problems (Last Updated 09/12/17 @ 15:18 by Patrick Andrews DO) Cellulitis (Ruled-out) Cellulitis and abscess of leg (Ruled-out) Debility (Acute) Candidiasis (Acute)
[2017-09-15] MEDS: Enoxaparin 40 MG/0.4 ML Syringe SC (09:00)
[2017-09-15] MEDS: Menthol/Lanolin/Calamine/Znox 113 GM Tube 1 APPLIC TOPICAL ×2 (09:00→14:41)
[2017-09-15] MEDS: Nystatin Powder 15gm Bottle 1 APPLIC TOPICAL (09:01)
--- NOTE | 2017-09-15 12:07 | PCM.PN.HOSP ---
Patient Problems: Active and Suspected Problems (Last Updated 09/12/17 @ 15:18 by Patrick Andrews DO) Debility (Acute) Candidiasis (Acute) Subjective: Patient is a 46-year-old gentleman morbidly obese with BMI of 80.4 with chronic bilateral lymphedema who was admitted with worsening swelling there was an initial suspicion of cellulitis involving the left lower extremity which has since been ruled out Objective: GENERAL: cooperative HEENT: Clear conjunctiva, NECK; supple, normal thyroid, CHEST: Diminished to auscultation bilaterally, HEART: Regular S1 S2, no audible murmurs ABDOMEN: soft, normoactive bowel sounds, RECTAL: deferred EXTREMITIES: Bilateral lymphedema, with extensive lichenification involving both lower extremities left more than right. AUTO GLASS TECHNICIAN: Awake, alert and oriented to time, place and person SKIN: as above Vitals/I&O's: Vital Signs Temp Pulse Resp BP Pulse Ox 98.2 F 85 18 131/74 H 98 09/15/17 08:25 09/15/17 08:25 09/15/17 08:25 09/15/17 08:25 09/15/17 08:25 Oxygen Flow Rate (L/min) 3 Oxygen Delivery Method Nasal Cannula Weight: 254.012 kg Body Mass Index (BMI) 80.3 Finger Stick Blood Glucose 114 Intake and Output for Last 24 Hours 09/13/17 09/14/17 09/15/17 23:59 23:59 23:59 Intake Total 724 / 724 693 / 693 1004 / 1004 Output Total 550 / 550 800 / 800 1400 / 1400 Balance 174 / 174 -107 / -107 -396 / -396 Laboratory Results 09/14/17 15:33: POC Glucose 104 09/14/17 21:47: POC Glucose 135 H 09/15/17 06:58: POC Glucose 105 Current Medications Calamine/Phenol (Calmoseptine Ointment) 1 applic TOPICAL 4X/DAY IZABEL PRN Reason: Protocol Last Admin: 09/15/17 09:00 Dose: 1 applic Dextrose (D50w Syringe) 0 gm IV X1 PRN; Protocol PRN Reason: Hypoglycemia Enoxaparin Sodium (Lovenox) 40 mg SC DAILY@1000 IZABEL Last Admin: 09/15/17 09:00 Dose: 40 mg Ergocalciferol (Vitamin D) 50,000 unit PO QWEEK [facility] Glucagon () 1 mg IM .X1 PRN PRN Reason: Hypoglycemia Magnesium Hydroxide (Milk Of Magnesia) 30 ml PO DAILY PRN PRN PRN Reason: Constipation Nystatin (Mycostatin Powder) 1 applic TOPICAL BID IZABEL PRN Reason: Protocol Last Admin: 09/15/17 09:01 Dose: 1 applicatio Sodium Chloride () 5 - 30 ml IV UD PRN PRN Reason: SALINE FLUSH Last Admin: 09/12/17 17:19 Dose: 10 ml Medical Necessity - Tobacco Use Smoking Status: Former smoker Assessment/Plan All Active Problems (Last Updated 09/12/17 @ 15:18 by Patrick Andrews DO) Cellulitis (Ruled-out) Cellulitis and abscess of leg (Ruled-out) Debility (Acute) Candidiasis (Acute) Patient is a 46-year-old gentleman morbidly obese with BMI of 80.4 with chronic bilateral lymphedema who was admitted with worsening swelling there was an initial suspicion of cellulitis involving the left lower extremity which has since been ruled out 1. Adult failure to thrive: Patient being managed on a regular nursing floor requested for social worker delinquency prevention to assist with disposition. Plan is for patient to be discharged to an ECF pending insurance approval 2. Bilateral lymphedema involving both lower extremities with extensive Lichenification consult was placed to wound care services. 3. Morbid obesity with BMI of 80.4 patient was advised to follow-up with PCP for subsequent referral for possible gastric bypass 4. Suspected chronic right-sided heart failure from obesity hypoventilation syndrome resulting in bilateral lower extremity lymphedema. An echo ordered could not be well interpreted due to technical difficulty in view of patient's size 5. Stage II pressure ulcer involving the left lower leg 6. DVT prophylaxis Lovenox Code Visit Inpatient E&M: 96115 Subs Hosp L2
--- NOTE | 2017-09-15 12:13 | PN_ITS ---
Patient Problems: Active and Suspected Problems (Last Updated 09/12/17 @ 15:18 by Patrick Andrews DO ) Debility (Acute) Candidiasis (Acute) Subjective: Patient is a 46-year-old gentleman morbidly obese with BMI of 80.4 with chronic bilateral lymphedema who was admitted with worsening swelling there was an initial suspicion of cellulitis involving the left lower extremity which has since been ruled out Objective: GENERAL: cooperative HEENT: Clear conjunctiva, NECK; supple, normal thyroid, CHEST: Diminished to auscultation bilaterally, HEART: Regular S1 S2, no audible murmurs ABDOMEN: soft, normoactive bowel sounds, RECTAL: deferred EXTREMITIES: Bilateral lymphedema, with extensive lichenification involving both lower extremities left more than right. NATIONAL ACCOUNT MANAGER: Awake, alert and oriented to time, place and person SKIN: as above Vitals/I&O's: Vital Signs Temp Pulse Resp BP Pulse Ox 98.2 F 85 18 131/74 H 98 09/15/17 08:25 09/15/17 08:25 09/15/17 08:25 09/15/17 08:25 09/15/17 08:25 Oxygen Flow Rate (L/min) 3 Oxygen Delivery Method Nasal Cannula Weight: 254.012 kg Body Mass Index (BMI) 80.3 Finger Stick Blood Glucose 114 Intake and Output for Last 24 Hours 09/13/17 09/14/17 09/15/17 23:59 23:59 23:59 Intake Total 724 / 724 693 / 693 1004 / 1004 Output Total 550 / 550 800 / 800 1400 / 1400 Balance 174 / 174 -107 / -107 -396 / -396 Laboratory Results 09/14/17 15:33: POC Glucose 104 09/14/17 21:47: POC Glucose 135 H 09/15/17 06:58: POC Glucose 105 Current Medications Calamine/Phenol (Calmoseptine Ointment) 1 applic TOPICAL 4X/DAY IZABEL PRN Reason: Protocol Last Admin: 09/15/17 09:00 Dose: 1 applic Dextrose (D50w Syringe) 0 gm IV X1 PRN; Protocol PRN Reason: Hypoglycemia Enoxaparin Sodium (Lovenox) 40 mg SC DAILY@1000 IZABEL Last Admin: 09/15/17 09:00 Dose: 40 mg Ergocalciferol (Vitamin D) 50,000 unit PO QWEEK [facility] Glucagon () 1 mg IM .X1 PRN PRN Reason: Hypoglycemia Magnesium Hydroxide (Milk Of Magnesia) 30 ml PO DAILY PRN PRN PRN Reason: Constipation Nystatin (Mycostatin Powder) 1 applic TOPICAL BID IZABEL PRN Reason: Protocol Last Admin: 09/15/17 09:01 Dose: 1 applicatio Sodium Chloride () 5 - 30 ml IV UD PRN PRN Reason: SALINE FLUSH Last Admin: 09/12/17 17:19 Dose: 10 ml Medical Necessity - Tobacco Use Smoking Status: Former smoker Assessment/Plan All Active Problems (Last Updated 09/12/17 @ 15:18 by Patrick Andrews DO) Cellulitis (Ruled-out) Cellulitis and abscess of leg (Ruled-out) Debility (Acute) Candidiasis (Acute) Patient is a 46-year-old gentleman morbidly obese with BMI of 80.4 with chronic bilateral lymphedema who was admitted with worsening swelling there was an initial suspicion of cellulitis involving the left lower extremity which has since been ruled out 1. Adult failure to thrive: Patient being managed on a regular nursing floor requested for social welfare clerk to assist with disposition. Plan is for patient to be discharged to an ECF pending insurance approval 2. Bilateral lymphedema involving both lower extremities with extensive Lichenification consult was placed to wound care services. 3. Morbid obesity with BMI of 80.4 patient was advised to follow-up with PCP for subsequent referral for possible gastric bypass 4. Suspected chronic right-sided heart failure from obesity hypoventilation syndrome resulting in bilateral lower extremity lymphedema. An echo ordered could not be well interpreted due to technical difficulty in view of patient's size 5. Stage II pressure ulcer involving the left lower leg 6. DVT prophylaxis Lovenox Code Visit Inpatient E&M: 91418 Subs Hosp L2
[2017-09-15 14:40] VITALS: BP 136/62; PULSE 93; RESP 18; TEMP 37; O2SAT 95
[2017-09-15 17:00] LABS: Bedside Glucose 105 mg/dL (70-110)
[2017-09-15 20:22] VITALS: BP 134/71; PULSE 81; RESP 18; TEMP 36.6; O2SAT 96
[2017-09-15 22:16] LABS: Bedside Glucose 98 mg/dL (70-110)
[2017-09-16 02:10] VITALS: BP 136/70; PULSE 80; RESP 18; TEMP 36.7; O2SAT 97
[2017-09-16] MEDS: 0.9% NaCl Peripheral Flush Adult/Peds IV ×2 (05:39→05:43)
[2017-09-16 06:37] VITALS: O2SAT 96
[2017-09-16 06:46] LABS: Bedside Glucose 83 mg/dL (70-110)
[2017-09-16 09:01] VITALS: BP 149/91; PULSE 86; RESP 18; TEMP 36.6; O2SAT 98
--- NOTE | 2017-09-16 09:04 | CASEMGMT ---
Social Work Note SW faxed updated clinicals to [facility] at [facility]. Plan: Discharge to [facility] pending pre-cert Apoorva Tuttle MANAGER UTILITY, SCHEDULING ASSISTANT
[2017-09-16] MEDS: Enoxaparin 40 MG/0.4 ML Syringe SC (10:23)
[2017-09-16] MEDS: Nystatin Powder 15gm Bottle 1 APPLIC TOPICAL (10:23)
[2017-09-16] MEDS: Menthol/Lanolin/Calamine/Znox 113 GM Tube 1 APPLIC TOPICAL ×2 (10:24→15:27)
--- NOTE | 2017-09-16 10:25 | CM.ED ---
Social Work Note [facility] completed and submitted in the [facility]. Two copies made for the SNF packet and for the pt's medical chart. Notifications tubed up to MS3 Kari CARBAJAL. [facility] Foy, VP REVENUE CYCLE, SKI TOPPER
--- NOTE | 2017-09-16 10:46 | PCM.TXEXTCAR ---
- Diet 09/12/17 15:10 Diet: Regular Diet Food consistency:: Regular Liquid Consistency:: Regular/Thin Type of Dietary Supplement:: Ensure Complete - Routine Orders/Code Status Code Status: Full Code - Wound(s) LEFT LOWER LEG Wound Type: LYMPHEDEMA/scales LEFT LOWER ABD Wound Type: excoriation/scratches LEFT AXILLARY Wound Type: CELLULITIS willie inner gluteal clef Wound Type: Pressure Injury B/L groin Wound Type: excoriation Abd folds Wound Type: excoriation Left thigh Wound Type: excoriation/scratches - Therapies Physical Therapy: Eval and Treat Occupational Therapy: Eval and Treat - Allergies/Procedures Done in Hospital Allergies/Adverse Reactions: Allergies No Known Allergies Allergy (Verified 09/12/17 11:42) - Type of Care/Length of Stay Estimated LOS: Convalescent Care Less Than 30 days Type of Care Needed: Skilled Rehab Potential: Fair Prognosis: Fair - Additional Orders/Day of Discharge Day of Discharge: 09/16/17 - Dietary and Speech Recommendations Dietitian Recommendations/Changes: Rec diet change to 2200 juwan , low sodium d/t BMI and edema. Rec d/c ensure w/ meals and provide MONROE bid (from pharmacy) instead to help w/ wound healing - Follow Up Care Primary Care Physician: Sheree Cedillo [Primary Care Provider] - Please follow up with your Primary Care Physician in: in 1-2 weeks
--- NOTE | 2017-09-16 10:49 | PCM.DC.SUM ---
Discharge Date and Diagnosis - Problem List Patient Problems: Active and Suspected Problems (Last Updated 09/12/17 @ 15:18 by Patrick Andrews DO) Debility (Acute) Candidiasis (Acute) Date of Admission: 09/12/17 Date of Discharge: 09/16/17 - Primary Discharge Diagnosis Active and Suspected Problems (Last Updated 09/12/17 @ 15:18 by Patrick Andrews DO) Debility (Acute) Candidiasis (Acute) - Secondary Discharge Diagnosis Chronic Problems (Last Updated 09/12/17 @ 15:18 by Patrick Andrews DO) Chronic acquired lymphedema (Chronic) Morbid obesity with BMI of 70 and over, adult (Chronic) BMI 82 260 kg Alcohol abuse (Chronic) Polysubstance abuse (Chronic) Hospital Course and Treatment Consultations 09/12/17 15:49 Consult: Onc/Wound/nutrition representative Routine Comment: Summary of Care Provided: Patient is a 46-year-old gentleman morbidly obese with BMI of 80.4 with chronic bilateral lymphedema who was admitted with worsening swelling there was an initial suspicion of cellulitis involving the left lower extremity which has since been ruled out 1. Adult failure to thrive: Patient being managed on a regular nursing floor requested for social studies department chair to assist with disposition. [facility] to continue with his recuperation once insurance approval was obtained. 2. Bilateral lymphedema involving both lower extremities with extensive Lichenification consult was placed to wound care services. 3. Morbid obesity with BMI of 80.4 patient was advised to follow-up with PCP for subsequent referral for possible gastric bypass 4. Suspected chronic right-sided heart failure from obesity hypoventilation syndrome resulting in bilateral lower extremity lymphedema. An echo ordered could not be well interpreted due to technical difficulty in view of patient's size 5. Stage II pressure ulcer involving the left lower leg 6. DVT prophylaxis Lovenox Discharge Diet: No Restrictions Discharge Activity: No Restrictions Home Medications: Medications to take at Discharge Cholecalciferol (Vitamin D3) [Vitamin D3] 50,000 units PO QWEEK 09/12/17 Magnesium Hydroxide [Milk Of Magnesia] 30 ml PO DAILY PRN PRN udc 09/16/17 Menthol/Lanolin/Calamine/Znox [Calmoseptine Ointment] 1 applic TOPICAL 4X/DAY tube 09/16/17 Nystatin Powder [Mycostatin Powder] 1 applic TOPICAL BID bottle 09/16/17 Primary Care Physician: Sheree Cedillo [Primary Care Provider] - Please follow up with your Primary Care Physician in: in 1-2 weeks Disposition: [facility] facility Minutes spent on discharge:: 35 Patient Condition:: Stable Medical Necessity - Tobacco Use Smoking Status: Former smoker Meaningful Use Info Meaningful Use Diagnoses (Choose all that apply): None applicable Code Visit Inpatient E&M: 08397 Disch Hosp
--- NOTE | 2017-09-16 10:50 | CASEMGMT ---
Rec'd phone call from [facility], updating that bariatric bed for pt will not arrive to facility until after 2pm. SW updated of same.
--- NOTE | 2017-09-16 11:39 | CM.ED ---
Social Work Note Transportation setup through [facility] via cot at 1600. Notified Jen at [facility]. Plan: [facility] for rehabilitation. Convalescent 7000 submitted in HENS. Transport through [facility] via cot at 1600. Iris Foy, RUG WEAVER, ENTERPRISE SOFTWARE DEVELOPER
[2017-09-16 12:11] LABS: Bedside Glucose 129 mg/dL (70-110)
[2017-09-16 15:22] VITALS: BP 145/97; PULSE 66; RESP 18; TEMP 37.1; O2SAT 98
--- NOTE | 2017-09-16 17:22 | CASEMGMT ---
Social Work Note SW updated pt of transportation time of 4:00pm. Pt states understanding and denied wanting this worker to call any family or friends to update them. This worker had received call from Elicia at [facility] earlier today stating that pre-cert was obtained for pt to be discharged today. MS IrisW, DISTRIBUTION TRANSFORMER ASSEMBLER completed convalescent 7000 in HENS and set up transportation, see previous notes. This SW faxed complete discharge paperwork to [facility] including transfer to extended care facility, signed medication list and any scripts. Originals in SNF folder and copy on pt's chart. Transportation form on chart and copy on pt's chart. Copy of convalescent 7000 in SNF folder and copy on pt's chart. Plan: Pt to discharge to [facility] today under skilled at 4:00pm [facility] Apoorva Tuttle MSW, DISTRIBUTION TRANSFORMER ASSEMBLER
== END 2017-09-16 16:51 | disposition skilled nursing facility (03) | DRG 296 ==
LOC: ED 14:41 → MS3 15:26
PROVIDERS: Emergency Provider Emergency Medicine; Family Provider Family Medicine; PCP Family Medicine; Visit Provider Internal Medicine
DX: R62.7 Adult failure to thrive (principal); I50.812 Chronic right heart failure; F10.10 Alcohol abuse, uncomplicated; I89.0 Lymphedema, not elsewhere classified; Z68.45 Body mass index [BMI] 70 or greater, adult; B37.2 Candidiasis of skin and nail; R53.81 Other malaise; L28.0 Lichen simplex chronicus; F19.10 Other psychoactive substance abuse, uncomplicated; E66.2 Morbid (severe) obesity with alveolar hypoventilation
CPT/HCPCS: 80048; 82962; 85025; 87040; 93306; 97110; 97162; 97166; 97530; 97802; 99285; J7030; J7040; Q9957; A4216; C8929

== ENCOUNTER 2017-11-17 01:17 | Observation (INO) | payer MEDICAID, SELFPAY ==
[2017-11-17] VITALS (12 sets, daily range): BP systolic 137–181; BP diastolic 70–97; PULSE 83–106; RESP 18–24; TEMP 36.4–37.2; O2SAT 87–98; BMI 78.9
--- NOTE | 2017-11-17 01:58 | EKG12_ITS ---
Test Reason : GEN ILLNESS Blood Pressure : / mmHG Vent. Rate : 104 BPM Atrial Rate : 104 BPM P-R Int : 156 ms QRS Dur : 100 ms QT Int : 360 ms P-R-T Axes : 056 101 054 degrees QTc Int : 473 ms Sinus tachycardia Rightward axis Low voltage QRS Borderline ECG Confirmed by MAGDALENO SALCEDO ([id number]), production editor CARIN BARKLEY ([id number] on 11/23/2017 2:00:48 PM Referred By: VERONICA Confirmed By:MAGDALENO SALCEDO
--- NOTE | 2017-11-17 02:02 | ED.DCSUM_ITS ---
- ER Visit Summary Date of Service: 11/17/17 Chief Complaint: Weakness History of Present Illness: The patient is a 47 M who presents for weakness. Patient states he could not get out of bed tonight and had to call EMS to assist him. He normally can get up on his own with some difficulty. Patient denies any fever, chest pain, shortness of breath, cough or congestion, abdominal pain, nausea or vomiting, diarrhea, urinary symptoms or any other specific complaints other than generalized weakness. Patient is morbidly obese and states he has obstructive sleep apnea, on home oxygen. He also has a vitamin D3 deficiency. He denies any history of coronary artery disease, hypertension, diabetes or any other health problems. He does not smoke but he is a daily drinker. Physical Examination: Vital signs: afebrile, hemodynamically stable, hypoxia on room air General: well nourished, well developed, morbidly obese with BMI of 79, in no distress Skin: warm, dry, no pallor, chronic skin thickening and changes of the bilateral lower extremities and the dependent areas of the pannus HEENT: normocephalic and atraumatic; PERRL, EOMI, dry mucous membranes Cardiovascular: Mildly tachycardic rate and regular rhythm without murmurs, significant chronic edema Respiratory: No increased work of breathing, lungs are clear to auscultation bilaterally, no adventitious sounds appreciated but exam limited secondary to body habitus Abdominal: Abdomen is obese, nontender with normoactive bowel sounds, no guarding or rebound, exam limited secondary to body habitus MSK: Moves all extremities, no deformities Neuro: Awake and alert, oriented ?4. No facial droop, sensation and motor function intact and symmetric Test Results: Abnormal Lab Results 11/17/17 11/17/17 11/17/17 01:28 01:28 01:28 WBC 7.3 RBC 4.94 Hgb 14.4 Hct 43.2 MCV 87.4 MCH 29.1 MCHC 33.3 RDW 15.2 H RDW Differential 48.2 H Plt Count 245 MPV 9.5 Immature Gran % (Auto) 0.400 Neut % (Auto) 68.9 Lymph % (Auto) 20.2 [place] % (Auto) 9.2 Eos % (Auto) 1.0 Baso % (Auto) 0.3 Absolute Neuts (auto) 5.1 Absolute Lymphs (auto) 1.48 Total Counted Not Reportable Sodium 140 Potassium 4.0 Chloride 101 Carbon Dioxide 25.0 Anion Gap 14 BUN 10 Creatinine 0.73 Estim Creat Clear Calc 131.94 Est GFR (MDRD) Af Amer 150 Est GFR (MDRD) Non-Af 124 BUN/Creatinine Ratio 13.7 Glucose 112 H Calcium 8.0 L Total Bilirubin 0.30 AST 28 ALT 29 Alkaline Phosphatase 65 Troponin I < 0.015 Total Protein 8.1 Albumin 3.1 L Globulin 5.0 H Albumin/Globulin Ratio 0.6 L Lipase 39 L Urine Color Urine Clarity Urine pH Ur Specific [place] Urine Protein Urine Glucose (UA) Urine Ketones Urine Occult Blood Urine Nitrite Urine Bilirubin Urine Urobilinogen Ur Leukocyte Esterase Urine RBC Urine WBC Ur Squamous Epith Cells Urine Bacteria Hyaline Casts Urine Mucus Urine Opiates Screen Urine Methadone Screen Ur Barbiturates Screen Ur Phencyclidine Scrn Ur Amphetamines Screen U Methamphetamin-MDMA U Benzodiazepines Scrn Urine Cocaine Screen U Cannabinoids Screen Ur Drug Screen Comment Ethyl Alcohol 183.0 11/17/17 11/17/17 04:30 04:30 WBC RBC Hgb Hct MCV MCH MCHC RDW RDW Differential Plt Count MPV Immature Gran % (Auto) Neut % (Auto) Lymph % (Auto) [place] % (Auto) Eos % (Auto) Baso % (Auto) Absolute Neuts (auto) Absolute Lymphs (auto) Total Counted Sodium Potassium Chloride Carbon Dioxide Anion Gap BUN Creatinine Estim Creat Clear Calc Est GFR (MDRD) Af Amer Est GFR (MDRD) Non-Af BUN/Creatinine Ratio Glucose Calcium Total Bilirubin AST ALT Alkaline Phosphatase Troponin I Total Protein Albumin Globulin Albumin/Globulin Ratio Lipase Urine Color Yellow Urine Clarity Sl. Cloudy Urine pH 5.0 Ur Specific [place] 1.025 Urine Protein 30 H Urine Glucose (UA) Normal Urine Ketones 15 H Urine Occult Blood 25 H Urine Nitrite Negative Urine Bilirubin Negative Urine Urobilinogen 1 H Ur Leukocyte Esterase 25 H Urine RBC 0-5 SEEN Urine WBC 0 SEEN Ur Squamous Epith Cells 5-10 SEEN Urine Bacteria RARE Hyaline Casts 0-5 SEEN Urine Mucus 1+ Urine Opiates Screen NEGATIVE Urine Methadone Screen NEGATIVE Ur Barbiturates Screen NEGATIVE Ur Phencyclidine Scrn NEGATIVE Ur Amphetamines Screen NEGATIVE U Methamphetamin-MDMA NEGATIVE U Benzodiazepines Scrn NEGATIVE Urine Cocaine Screen NEGATIVE U Cannabinoids Screen POSITIVE H Ur Drug Screen Comment Ethyl Alcohol Clinical Impression(s) from Imaging Studies Chest X-Ray 11/17/17 02:20 IMPRESSION: Stable mild cardiomegaly. Electronically Signed: Guilherme Smith MD at 3:48 EDT , Service support , Emergency Department Course and Treatment: Patient presents complaining of weakness, unable to get out of bed without assistance, which he normally is able to do. Workup was performed to look for underlying causes of decompensation from patient's baseline. EKG showed no ischemic changes. Chest x-ray showed no signs of pneumonia or other acute process. Labs showed no significant anemia, leukocytosis, electrolyte derangements, hepatic derangements. Troponin negative. Patient did have a positive alcohol of 183, consistent with patient stating he is a regular drinker. Patient was given IV fluids. After a period of observation and time to metabolize alcohol, PEEP patient was reevaluated and stated he still felt very weak and did not think that he was going to be able to get out of bed or attend to his normal activities of daily living. He states he does not feel able to go home and requested placement in a group home facility since he does not feel he will be able to take care of himself. Patient was discussed with the hospitalist for admission for weakness and need for placement due to inability to provide for patient's own basic needs. Treatment Plan: [] Disposition: [] Impression: Weakness, chronic lymphedema, debility This note was generated with Corvil dictation software. It may contain incorrect words, spelling, and punctuation that were not noted in review of the chart prior to signing ED Disposition - Plan for ED Patient: Chief Complaint: General Illness
[2017-11-17 02:12] LABS: Absolute Lymphocyte Count 1.48 X10^3/ul (0.83-4.51); Absolute Neutrophil Count 5.1 X10^3/uL (2.0-7.7); Basophil# 0.02 X10^3/uL; Basophil% 0.3 % (0-1); Eosinophil# 0.07 X10^3/uL; Hematocrit 43.2 % (40-54); Hemoglobin 14.4 g/dl (13.0-16.5); Lymphocyte # 1.48 X10^3/ul (4.0); Lymphocyte % 20.2 % (19-41); Mean Corp Hgb Conc 33.3 g/gl (32-36); Mean Corpuscular Hgb 29.1 pg (27.0-32.0); Mean Corpuscular Volume 87.4 fL (80-94); Mean Platelet Vol. 9.5 fl (6.2-12.0); Monocyte# 0.67 X10^3/uL; Monocyte% 9.2 % (0-10); Neutrophil # 5.05 X10^3/uL (2.7-7.7); Neutrophil % 68.9 % (47-70); POSITIVE COUNT NO; POSITIVE DIFFERENTIAL NO; POSITIVE MORPHOLOGY NO; Platelet Count 245 K/mm3 (150-450); RBC Distribution Width CV 15.2 % (11.6-14.6); RBC Distribution Width SD 48.2 fl (35.1-43.9); Red Blood Count 4.94 M/mm3 (4.6-6.2); White Blood Count 7.3 K/mm3 (4.4-11.0)
[2017-11-17 02:25] LABS: ALB/GLOB Ratio 0.6 RATIO (0.9-2.4); AST(SGOT) 28 U/L (15-37); Alanine Aminotransfer ALT/SGPT 29 U/L (16-61); Albumin, Serum 3.1 g/dL (3.2-5.0); Alkaline Phosphatase 65 U/L (45-117); Anion Gap 14 (5-15); BUN 10 mg/dL (7-18); BUN/Creat Ratio 13.7 RATIO (10-20); Chloride 101 mmol/L (98-107); Creatinine, Serum 0.73 mg/dL (0.70-1.30); EST Glomerular Filtration Rate 124 mL/min (>60); Est Glom Filt Rate - Afr Amer 150 mL/min (>60); Estimated Creatinine Clearance 131.94 ml/min; Glucose 112 mg/dL (74-106); Lipase 39 U/L (73-393); Protein, Total 8.1 g/dL (6.4-8.2); Sodium Level 140 mmol/L (136-145)
[2017-11-17] MEDS: 0.9% Normal Saline 1,000 ML 500 ML IV (02:52)
--- NOTE | 2017-11-17 04:22 | NURSING ---
PT REPOSTION IN BED WITH ASST OF 3.
--- NOTE | 2017-11-17 04:29 | NURSING ---
MD DID NOT WANT THE PT TO BE CATH. PT VOIDED BUT MD AWARE NOT A GOOD CLEAN CATCH.
[2017-11-17 04:30] LABS: White Blood Cells 0 SEEN /hpf (0-5)
[2017-11-17 04:35] LABS: Color, Urine Yellow (Yellow); Glucose, Dipstick Normal (Normal); Ketone-Dipstick 15 mg/dl (Negative); Leukocyte Esterase-Dipstick 25 /ul (Negative); Nitrite-Dipstick Negative (Negative); Occult Blood-Urine 25 /ul (Negative); Protein-Dipstick 30 mg/dl (Negative); Specific Gravity, Urine 1.025 (1.002-1.030); Urine Bilirubin Dipstick Negative (Negative); Urine Clarity Sl. Cloudy (Clear); Urine Urobilinogen 1 mg/dl (Normal)
[2017-11-17 04:54] LABS: Bacteria RARE /hpf (None Seen); Mucous, Urine 1+ /hpf (<or=2+); Red Blood Cells-Urine 0-5 SEEN /hpf (0-5); Squamous Epithelial Cells - UA 5-10 SEEN /hpf (0-5)
[2017-11-17 04:55] LABS: Hyaline Cast 0-5 SEEN /lpf (0-5)
[2017-11-17 04:57] LABS: Amphetamine Urine VISTA NEGATIVE (<1000 ng/mL); Barbiturate Urine VISTA NEGATIVE (< 200 ng/mL); Benzodiazepine Urine VISTA NEGATIVE (< 200 ng/mL); Cocaine Urine VISTA NEGATIVE (< 300 ng/mL); Ecstacy Urine VISTA NEGATIVE (< 500 ng/mL); Methadone Urine VISTA NEGATIVE (< 300 ng/mL); PCP Urine VISTA NEGATIVE (< 25 ng/mL); THC Urine VISTA POSITIVE (< 50 ng/mL); Vista UDS pH Range 5
--- NOTE | 2017-11-17 05:08 | NURSING ---
PT REPOSTION IN BED WITH ASST OF 3.
--- NOTE | 2017-11-17 05:47 | PCM.HP.STD ---
Problem List (1) Alcohol abuse Status: Chronic (2) Polysubstance abuse Status: Chronic (3) Debility Status: Acute (4) Elevated blood pressure reading without diagnosis of hypertension Status: Acute History of Present Illness Date of Admission: 11/17/17 Chief Complaint: Generalized weakness ?1 day. The patient is a 47 year old M with a significant history of super morbid obesity, home oxygen dependence for sleep; and vitamin D deficiency; alcoholism who presents with weakness ?1 day. Patient reports that he was weak to the point that he could not get up from the bed. He called the ambulance to the hospital for a plan to get placement into [facility]. At emergency department and had an internal level of 182. Past Medical History Past Medical History (Chronic Problems): Chronic Problems (Last Reviewed 11/17/17 @ 06:36 by Zeus Faust MD) Chronic acquired lymphedema (Chronic) Morbid obesity with BMI of 70 and over, adult (Chronic) BMI 82 260 kg Alcohol abuse (Chronic) Polysubstance abuse (Chronic) Medical History: Medical History (Last Reviewed 11/17/17 @ 06:36 by Zeus Faust MD) Lymphedema I89.0 Morbid obesity E66.01 Allergies No Known Allergies Allergy (Verified 11/17/17 01:24) Home Medications: Ambulatory Orders Medication Instructions Recorded Cholecalciferol (Vitamin D3) 50,000 units PO QWEEK 09/12/17 [Vitamin D3] Surgical History: no surgical history Psychiatric History: No pertinent psych hx Lives: With Family Smoking Status: Former smoker Alcohol: Heavy Drugs: Marijuana - *Family History Maternal History Items: No pertinent history, - - no heart disease Paternal History Items: Cancer - His father had lymph node cancer., - Review of Systems Constitutional: Reports: Weakness Eyes: Denies: Blurred vision, Pain HEENT: Denies: Head Aches, Sinus Congestion, Sinus Drainage Cardiovascular: Denies: Chest Pain, Palpitations Respiratory: Denies: Cough, Shortness of breath at rest, Sputum production Gastrointestinal: Denies: Abdominal Pain, Nausea, Vomiting Genitourinary: Denies: Dysuria Musculoskeletal: Denies: Joint Pain, Joint Tenderness Skin: Denies: Rash, Wounds Neurological: Denies: Numbness, Tingling, Focal weakness Psychiatric: Denies: Anxiety, Depression, Homicidal Ideations, Suicidal Ideations Hematologic/ Lymphatic: Denies: Easy Bruising, Easy Bleeding VTE Information - Inpt Only VTE Present on Admission: No VTE Mechan Device Prophylaxis: None VTE Pharm Prophylaxis ordered?: Yes Patient Problems: Active and Suspected Problems (Last Reviewed 11/17/17 @ 06:36 by Zeus Faust MD) Elevated blood pressure reading without diagnosis of hypertension (Acute) - Physical Exam General: Alert, Oriented x3, Cooperative HEENT: Atraumatic, PERRLA, EOMI, Normocephalic Neck: Supple, No JVD, Negative Carotid Bruits Lungs: Diminished Cardiovascular: Regular rate, - - Diminished heart sounds likely due to body habitus. Abdomen: Soft, Non Tender, Bowel Sounds Not Present - Likely due to body habitus. Extremities: - - Lipodermatosclerosis bilateral legs. Skin: - - Lipodermatosclerosis of lower abdomen and bilateral legs. Musculoskeletal: No Tenderness to Palpation of Joints or Extremities Lymphatic: No Cervical, Supraclavicular, or Inguinal Adenopathy Neurological: Cranial nerves II-XII grossly intact Psych/Mental Status: Normal Affect Vital Signs Temp Pulse Resp BP Pulse Ox 99 F 101 H 19 H 181/70 H 94 11/17/17 01:18 11/17/17 05:01 11/17/17 05:01 11/17/17 05:01 11/17/17 05:01 Oxygen Flow Rate (L/min) 5 Oxygen Delivery Method Room Air Weight: 249.476 kg Body Mass Index (BMI) 78.9 Finger Stick Blood Glucose 114 Laboratory Tests Past 24 Hrs 11/17/17 11/17/17 11/17/17 01:28 01:28 01:28 WBC 7.3 RBC 4.94 Hgb 14.4 Hct 43.2 MCV 87.4 MCH 29.1 MCHC 33.3 RDW 15.2 H RDW Differential 48.2 H Plt Count 245 MPV 9.5 Immature Gran % (Auto) 0.400 Neut % (Auto) 68.9 Lymph % (Auto) 20.2 [place] % (Auto) 9.2 Eos % (Auto) 1.0 Baso % (Auto) 0.3 Absolute Neuts (auto) 5.1 Absolute Lymphs (auto) 1.48 Total Counted Not Reportable Sodium 140 Potassium 4.0 Chloride 101 Carbon Dioxide 25.0 Anion Gap 14 BUN 10 Creatinine 0.73 Estim Creat Clear Calc 131.94 Est GFR (MDRD) Af Amer 150 Est GFR (MDRD) Non-Af 124 BUN/Creatinine Ratio 13.7 Glucose 112 H Calcium 8.0 L Total Bilirubin 0.30 AST 28 ALT 29 Alkaline Phosphatase 65 Troponin I < 0.015 Total Protein 8.1 Albumin 3.1 L Globulin 5.0 H Albumin/Globulin Ratio 0.6 L Lipase 39 L Urine Color Urine Clarity Urine pH Ur Specific [place] Urine Protein Urine Glucose (UA) Urine Ketones Urine Occult Blood Urine Nitrite Urine Bilirubin Urine Urobilinogen Ur Leukocyte Esterase Urine RBC Urine WBC Ur Squamous Epith Cells Urine Bacteria Hyaline Casts Urine Mucus Urine Opiates Screen Urine Methadone Screen Ur Barbiturates Screen Ur Phencyclidine Scrn Ur Amphetamines Screen U Methamphetamin-MDMA U Benzodiazepines Scrn Urine Cocaine Screen U Cannabinoids Screen Ur Drug Screen Comment Ethyl Alcohol 183.0 11/17/17 11/17/17 04:30 04:30 WBC RBC Hgb Hct MCV MCH MCHC RDW RDW Differential Plt Count MPV Immature Gran % (Auto) Neut % (Auto) Lymph % (Auto) [place] % (Auto) Eos % (Auto) Baso % (Auto) Absolute Neuts (auto) Absolute Lymphs (auto) Total Counted Sodium Potassium Chloride Carbon Dioxide Anion Gap BUN Creatinine Estim Creat Clear Calc Est GFR (MDRD) Af Amer Est GFR (MDRD) Non-Af BUN/Creatinine Ratio Glucose Calcium Total Bilirubin AST ALT Alkaline Phosphatase Troponin I Total Protein Albumin Globulin Albumin/Globulin Ratio Lipase Urine Color Yellow Urine Clarity Sl. Cloudy Urine pH 5.0 Ur Specific [place] 1.025 Urine Protein 30 H Urine Glucose (UA) Normal Urine Ketones 15 H Urine Occult Blood 25 H Urine Nitrite Negative Urine Bilirubin Negative Urine Urobilinogen 1 H Ur Leukocyte Esterase 25 H Urine RBC 0-5 SEEN Urine WBC 0 SEEN Ur Squamous Epith Cells 5-10 SEEN Urine Bacteria RARE Hyaline Casts 0-5 SEEN Urine Mucus 1+ Urine Opiates Screen NEGATIVE Urine Methadone Screen NEGATIVE Ur Barbiturates Screen NEGATIVE Ur Phencyclidine Scrn NEGATIVE Ur Amphetamines Screen NEGATIVE U Methamphetamin-MDMA NEGATIVE U Benzodiazepines Scrn NEGATIVE Urine Cocaine Screen NEGATIVE U Cannabinoids Screen POSITIVE H Ur Drug Screen Comment Ethyl Alcohol Assessment/Plan All Active Problems (Last Reviewed 11/17/17 @ 06:36 by Zeus Faust MD) Elevated blood pressure reading without diagnosis of hypertension (Acute) Cellulitis (Ruled-out) Cellulitis and abscess of leg (Ruled-out) Debility (Acute) Candidiasis (Acute) The patient is a 47 year old M with a significant history of super morbid obesity, home oxygen dependence for sleep; and vitamin D deficiency; alcoholism who presents with weakness. to the point that he could not get up. Generalized weakness Likely due to debility Case management consult for [facility] to [facility]. PT and OT to work with patient. Vitamin D deficiency Vitamin D3 continued. Polysubstance dependence Patient reports that he drinks 1-2 bottles of vodka per day; 4-5 times in a week. Also reports intermittent use of marijuana Counseled He does not think he will withdrawal. Close monitoring. CIWA was not started at this time. Probable obstructive sleep apnea Super morbid obesity. Patient reports that he has not followed up with a sleep study. Counselled to follow up with outpatient sleep study. Chronic respiratory failure with home oxygen use for now and for sleep. Oxygen as needed Oxygen for sleep and naps. Abnormal calcium on labs Calcium level 8.0 Calcium corrected for albumin is 8.7. Lymphedema Chronic and stable Patient patient to follow up outpatient. DVT prophylaxis Lovenox dose adjusted by body size. Code Visit OBSV E&M: 47249 Initial observation care L3
--- NOTE | 2017-11-17 06:40 | NURSING ---
321 obs weakness agyepong
--- NOTE | 2017-11-17 09:34 | NURSING ---
Was asked to see patient. Pt is super morbidly obese. patient admits to alcohol and marijuana use. patient states he mostly lays on his left side. pt is not able to move well from side to side. patient has redness to all folds and to bilateral axilla. pt has thick brown skin to the left lower leg and abdomen. patient has some redness noted to the left hip as well. pt states he came in to the hospital hoping to [facility] from [facility]. HOST's to give patient a bath. pt is very unkept. will monitor skin, but no open areas are noted at this time. unable to assess buttocks at this time.
[2017-11-17] MEDS: Enoxaparin 60 MG/0.6 ML Syringe SC (09:59)
--- NOTE | 2017-11-17 10:00 | CASEMGMT ---
Social work Note RN RENA Mullen updated this worker that she overheard that pt would like to go to [facility] at discharge. SW in to meet with pt. Pt confirms that he wishes to discharge to [facility]. SW explained referral process and pre-certification. Pt states understanding. SW asked pt about substance abuse hx. Pt states that he drinks a little bit of alcohol. Pt states that he prefers vodka and can drink for several days or go several days without drinking. Pt denied additional substance abuse hx. RAVEN placed a call to Iris Goodwin, quality management, to have referral sent. Plan: [facility] pending acceptance and pre-cert Apoorva Tuttle MANAGER GIFT, SHIPPING PROCESSOR
--- NOTE | 2017-11-17 10:17 | CASEMGMT ---
Per RAVEN Guerin, referral to be sent to [facility]. Call placed to subhash Larson. Marsha is willing to take a look at referral but is unsure if able to accept patient. Referral faxed, confirmation rec'd. RAVEN Guerin updated that [facility] may be unable to accept pt. Iris Goodwin LPN Clinical Support
--- NOTE | 2017-11-17 10:40 | PCM.PN.BLA ---
Progress Note Patient was admitted this morning with inability to get up from his bed and walk. His intent is [facility] be [facility] to a pen[facility]iary Denies any new complaints. No acute events overnight Vitals are stable Labs are stable Meds reviewed Discussed with director social service and case management Patient will need to be fed for bariatric surgery for weight loss management Code Visit Procedures: Other Procedure - See Report - Non-billable round
[2017-11-17] MEDS: Nystatin Powder 15gm Bottle 1 APPLIC TOPICAL ×2 (11:06→22:59)
--- NOTE | 2017-11-17 11:43 | CASEMGMT ---
Spoke with Marsha at [facility], they are unable to accept patient. RAVEN Guerin notified. Iris Goodwin LPN Clinical Support
[2017-11-17] MEDS: Folic Acid 1 MG Tablet PO (12:17)
--- NOTE | 2017-11-17 16:24 | CASEMGMT ---
Social Work Note SW received call from Marsha at [facility] stating that she is unable to accept pt due to pt's weight. SW updated pt of this. Pt states that he has different insurance listed. Pt states that he has [employer] insurance. SW informed pt that he will need to have someone bring in a copy of his insurance card if he doesn't have one with him. Pt states that he can probably have someone bring in insurance card. Pt states that he would like to go to a facility that specializes in lymphedema treatment. SW explained pt that this worker is unsure if any of SNF specialize in lymphedema treatment and that any SNF should be able to provide the same care that pt is getting at [facility] for lymphedema. SW informed pt that once pt brings in copy of insurance card and PT/OT works with pt then pt can decided which SNF he would like referral sent to. Pt states understanding. RAVEN spoke with cardio tech Nurse Hannah. Hannah states that there are no special treatments for lymphedema and all pt is getting at [facility] is katie wrap. Hannah states that with lymphedema pt just needs his legs wrapped and to work with PT/OT. Hannah states that pt has very little lymphedema and that it is mostly fat on pt's leg. SW informed OSWALDO Liu of this who will reiterate to pt this information. SW to follow up with pt tomorrow once pt brings in insurance cards to determine SNF placement. Plan: SNF pending acceptance and pre-cert Apoorva Tuttle CHASSIS ENGINEER, PICK UP TRUCK DRIVER
[2017-11-17] MEDS: Thiamine Hydrochloride 100 MG Tablet PO (17:47)
[2017-11-18 05:15] VITALS: BP 140/77; PULSE 75; RESP 18; TEMP 36.4; O2SAT 97
[2017-11-18 07:43] VITALS: BP 143/70; PULSE 70; RESP 18; TEMP 36.7; O2SAT 94
[2017-11-18] MEDS: Folic Acid 1 MG Tablet PO (07:58)
[2017-11-18] MEDS: Thiamine Hydrochloride 100 MG Tablet PO ×2 (07:58→17:35)
[2017-11-18] MEDS: Multivitamins,Ther W-Minerals Tablet 1 TABLET PO (07:58)
[2017-11-18] MEDS: Menthol/Lanolin/Calamine/Znox 113 GM Tube 1 APPLIC TOPICAL ×2 (10:24→22:30)
[2017-11-18] MEDS: Enoxaparin 60 MG/0.6 ML Syringe SC (10:24)
[2017-11-18] MEDS: Nystatin Powder 15gm Bottle 1 APPLIC TOPICAL ×2 (10:24→22:30)
--- NOTE | 2017-11-18 10:41 | PCM.PN.HOSP ---
Patient Problems: Active and Suspected Problems (Last Reviewed 11/17/17 @ 06:36 by Zeus Faust MD) Elevated blood pressure reading without diagnosis of hypertension (Acute) Subjective: Patient was seen and examined. Denies any new complaints. Waiting on insurance precertification for discharge. Denies any fever or chills. Moved around the room with therapy yesterday. No acute events overnight Vitals/I&O's: Vital Signs Temp Pulse Resp BP Pulse Ox 98.0 F 70 18 143/70 H 94 11/18/17 07:43 11/18/17 07:43 11/18/17 07:43 11/18/17 07:43 11/18/17 07:43 Oxygen Flow Rate (L/min) 3 Oxygen Delivery Method Nasal Cannula Weight: 249.476 kg Body Mass Index (BMI) 78.9 Intake and Output for Last 24 Hours 11/16/17 11/17/17 11/18/17 23:59 23:59 23:59 Intake Total 600 / 600 657 / 657 Balance 600 / 600 657 / 657 General: Alert, Oriented x3, Cooperative, - HEENT: Atraumatic, PERRLA, EOMI, Normocephalic Oral: Moist Mucosa Neck: Supple Lungs: Clear to auscultation, Normal air movement Cardiovascular: Regular rate, Regular Rhythm, Normal S1, Normal S2, No murmurs Abdomen: Bowel Sounds Present, Soft, Non Tender, Non-Distended, No Hepato-splenomegaly Extremities: No edema Skin: No rashes, No breakdown Musculoskeletal: No Tenderness to Palpation of Joints or Extremities Lymphatic: No Cervical, Supraclavicular, or Inguinal Adenopathy Neurological: Cranial nerves II-XII grossly intact, Neuro grossly intact Psych/Mental Status: Normal Affect, Appropriate Current Medications Calamine/Phenol (Calmoseptine Ointment) 1 applic TOPICAL BID [facility]1983 PRN Reason: Protocol Last Admin: 11/18/17 10:24 Dose: 1 applicatio Enoxaparin Sodium (Lovenox) 60 mg SC DAILY [facility], [facility]1983 Last Admin: 11/18/17 10:24 Dose: 60 mg Ergocalciferol (Vitamin D) 50,000 unit PO We@1000 [facility], [facility] Last Admin: 11/17/17 09:59 Dose: 50,000 unit Folic Acid (Folic Acid) 1 mg PO DAILY@0800 [facility]1983 Stop: 11/19/17 08:01 Last Admin: 11/18/17 07:58 Dose: 1 mg Lorazepam (Ativan) 2 mg PO Q2H PRN PRN; Protocol PRN Reason: CIWA score > 8 but <15 Lorazepam (Ativan) 2 mg PO UD PRN; Protocol PRN Reason: CIWA score >/=15. Lorazepam (Ativan) 2 mg IV Q2H PRN PRN; Protocol PRN Reason: CIWA score > 8 but <15 Lorazepam (Ativan) 2 mg IV UD PRN; Protocol PRN Reason: CIWA score >/=15. Magnesium Hydroxide (Milk Of Magnesia) 30 ml PO DAILY PRN PRN PRN Reason: Constipation Multivitamins/Minerals ([facility] Minerals) [facility] Last Admin: 11/18/17 07:58 Dose: 1 tablet Nystatin (Mycostatin Powder) 1 applic TOPICAL BID [facility] PRN Reason: Protocol Last Admin: 11/18/17 10:24 Dose: 1 applic Sodium Chloride () 5 - 30 ml IV UD PRN PRN Reason: SALINE FLUSH Thi[facility] Stop: 11/20/17 08:01 Last Admin: 11/18/17 07:58 Dose: 100 mg Medical Necessity - Tobacco Use Smoking Status: Former smoker Assessment/Plan All Active Problems (Last Reviewed 11/17/17 @ 06:36 by Zeus Faust MD) Elevated blood pressure reading without diagnosis of hypertension (Acute) Cellulitis (Ruled-out) Cellulitis and abscess of leg (Ruled-out) Debility (Acute) Candidiasis (Acute) 47 y/o with PMHx of super super morbid obesity, alcohol dependency admitted with inability to get up and ambulate. 1. Debility related to super super morbid obesity, patient is looking for discharge to custodial facility as he is unable to do his BADLs or IADLs 2. Alcohol dependency, on CIWA protocol 3. Super super morbid obesity, BMI is 78.9, needs referral for bariatric surgery 4. Vitamin D deficiency, on replacement 5. Possible MARY ANN, with oxygen use overnight, will need sleep study in the outpatient 6. Lymphedema, chronic, needs follow-up in outpatient 7. DVT PPx- Lovenox SC 8. Disposition: Waiting on insurance precertification for discharge to SNF. Code Visit Inpatient E&M: 88842 Subs Hosp L2
[2017-11-18 12:30] VITALS: BP 131/87; PULSE 81; RESP 16; TEMP 36.7; O2SAT 96
[2017-11-18 14:05] VITALS: BP 139/71; PULSE 85; RESP 16; TEMP 36.6; O2SAT 96
--- NOTE | 2017-11-18 17:00 | CASEMGMT ---
Social Work Note Pt brought in new insurance card. SW copied insurance card and card was taken to registration to update pt's insurance. SW tried multiple SNF for pt to get placed in with all of them denying pt except for [facility]. RAVEN spoke with Cookie at [facility]. Cookie states that she is able to provide lymphedema treatment to pt as currently pt is only receiving MARQUIS wrap on his leg. Cookie states that she doesn't need pre-cert as [facility] has a contract with [facility] and pt is able to discharge to [facility] tomorrow. RAVEN asked Cookie if pt could discharge today and Cookie states that tomorrow would be better so she can make sure pt's room is set up. SW updated pt of this. Pt states understanding. RAVEN completed PAS/RR in [facility] and placed on pt's chart. SW set up transportation through [facility] via bariatric cot for 11:00am tomorrow (Wednesday11/19/2017). Transportation form on pt's chart. OSWALDO Mullen updated Dr. Magallanes of this. Plan: Pt to discharge to [facility] under skilled tomorrow 11/19/2017 with [facility] transporting via bariatric cot. Apoorva Tuttle SUPPLY CHAIN DIRECTOR, ROAD GRADER
[2017-11-18 20:00] VITALS: BP 139/68; PULSE 87; RESP 18; TEMP 36.6; O2SAT 96
[2017-11-19 02:25] VITALS: BP 155/87; PULSE 85; RESP 18; TEMP 36.7; O2SAT 96
[2017-11-19 08:02] VITALS: O2SAT 96
[2017-11-19 09:01] VITALS: BP 155/81; PULSE 78; RESP 18; TEMP 36.4; O2SAT 98
[2017-11-19] MEDS: Thiamine Hydrochloride 100 MG Tablet PO (09:05)
[2017-11-19] MEDS: Multivitamins,Ther W-Minerals Tablet 1 TABLET PO (09:05)
[2017-11-19] MEDS: Folic Acid 1 MG Tablet PO (09:05)
[2017-11-19] MEDS: Enoxaparin 60 MG/0.6 ML Syringe SC (09:06)
[2017-11-19] MEDS: Nystatin Powder 15gm Bottle 1 APPLIC TOPICAL (09:06)
[2017-11-19] MEDS: Menthol/Lanolin/Calamine/Znox 113 GM Tube 1 APPLIC TOPICAL (09:06)
--- NOTE | 2017-11-19 10:07 | PCM.TXEXTCAR ---
- Diet 11/17/17 06:23 Diet: Calorie Controlled Type of Dietary Supplement:: Ensure Complete Diet Comments: 2GM Na How many daily calories?: 1800 calorie - Routine Orders/Code Status O2 Liters per Minute: 2-3 L of oxygen O2 Frequency: Continuous Keep PO Greater than or Equal to (%): 94 Routine Lab Work: CBC - within 3 days, BMP - within 3 days - Therapies Weight Bearing: Weight bearing as tolerated Physical Therapy: Eval and Treat Occupational Therapy: Eval and Treat - Allergies/Procedures Done in Hospital Allergies/Adverse Reactions: Allergies No Known Allergies Allergy (Verified 11/17/17 01:24) Procedures: None - Type of Care/Length of Stay Estimated LOS: Convalescent Care Less Than 30 days Type of Care Needed: Skilled Rehab Potential: Good Prognosis: Good - Additional Orders/Day of Discharge Additional Orders: Apply nystatin powder to all intertriginous areas including bilateral leg folds. Day of Discharge: 11/19/17 - Follow Up Care Primary Care Physician: eFi Levi, TITLE I TEACHER-C [Primary Care Provider] - Please follow up with your Primary Care Physician in: within 2 weeks of discharge Please Follow Up With: Malcolm Zamora MD When: within 2 weeks for evaluation for MARY ANN; for sleep study. Please Follow Up With: Titi Lyons MD When: within 2 weeks for evaluation for lymphedema
--- NOTE | 2017-11-19 10:17 | PCM.DC.SUM ---
Discharge Date and Diagnosis Date of Admission: 11/17/17 Date of Discharge: 11/19/17 - Primary Discharge Diagnosis Active and Suspected Problems (Last Reviewed 11/17/17 @ 06:36 by Zeus Faust MD) Elevated blood pressure reading without diagnosis of hypertension (Acute) Debility Morbid Obesity - Secondary Discharge Diagnosis Chronic Problems (Last Reviewed 11/17/17 @ 06:36 by Zeus Faust MD) Chronic acquired lymphedema (Chronic) Morbid obesity with BMI of 70 and over, adult (Chronic) BMI 82 260 kg Alcohol abuse (Chronic) Polysubstance abuse (Chronic) Hospital Course and Treatment Imaging Results: Clinical Impression(s) from Imaging Studies Chest X-Ray 11/17/17 02:20 IMPRESSION: Stable mild cardiomegaly. Electronically Signed: Guilherme Smith MD at 3:48 EDT , Service support , Consultations 11/17/17 07:04 Consult: Onc/Wound/educational coordinator Routine Comment: Operations: None Procedures: None Summary of Care Provided: 47 y/o with PMHx of super super morbid obesity, alcohol dependency admitted with inability to get up and ambulate. 1. Debility related to super super morbid obesity, he is unable to do his BADLs or IADLs, was discharged to SNF. 2. History of Alcohol dependency, on CINH protocol. 3. Super super morbid obesity, BMI is 78.9, needs referral for bariatric surgery in the outpatient. 4. Vitamin D deficiency, on replacement 5. Possible MARY ANN, with oxygen use overnight, will refer to pulmonology for outpatient sleep study. 6. Lymphedema, chronic, needs follow-up in outpatient wound clinic. Discharge Diet: Low fat/ Low Cholesterol, 2000 mg Sodium Diet Discharge Activity: Return to Normal Activity Home Medications: Medications to take at Discharge Cholecalciferol (Vitamin D3) [Vitamin D3] 50,000 units PO QWEEK 09/12/17 Enoxaparin [Lovenox] 60 mg SC DAILY syringe 11/19/17 Menthol/Lanolin/Calamine/Znox [Calmoseptine Ointment] 1 applic TOPICAL BID tube 11/19/17 Nystatin Powder [Mycostatin Powder] 1 applic TOPICAL BID bottle 09/07/18 Thiamine Hydrochloride [Vitamin B1] 100 mg PO BIDCM tablet 11/19/17 Primary Care Physician: Fei Levi, PACKAGER HEAD-C [Primary Care Provider] - Please follow up with your Primary Care Physician in: within 2 weeks of discharge Please Follow Up With: Malcolm Zamora MD When: within 2 weeks for evaluation for MARY ANN; for sleep study. Please Follow Up With: Titi Lyons MD When: within 2 weeks for evaluation for lymphedema Disposition: Home Minutes spent on discharge:: 35 Patient Condition:: Stable Medical Necessity - Tobacco Use Smoking Status: Former smoker Meaningful Use Info Meaningful Use Diagnoses (Choose all that apply): None applicable Code Visit Inpatient E&M: 93134 Disch Hosp
== END 2017-11-19 13:11 | disposition skilled nursing facility (03) ==
LOC: ED 02:05 → MS3 06:40
PROVIDERS: Admitting Provider Hospitalist; Emergency Provider Emergency Medicine; Family Provider Family Medicine; PCP Nurse Practitioner Family; Visit Provider Internal Medicine
DX: R53.81 Other malaise (principal); E66.01 Morbid (severe) obesity due to excess calories; Z68.45 Body mass index [BMI] 70 or greater, adult; Z71.3 Dietary counseling and surveillance; R03.0 Elevated blood-pressure reading, without diagnosis of hypertension; I89.0 Lymphedema, not elsewhere classified; F10.20 Alcohol dependence, uncomplicated; E55.9 Vitamin D deficiency, unspecified; Z87.891 Personal history of nicotine dependence; Z79.899 Other long term (current) drug therapy; Z99.81 Dependence on supplemental oxygen; I83.12 Varicose veins of left lower extremity with inflammation; I83.11 Varicose veins of right lower extremity with inflammation
CPT/HCPCS: 71045; 80053; 80307; 80320; 81001; 83690; 84484; 85025; 93005; 96360; 96372; 97162; 97166; 97530; 99218; 99285; J7030; J7040; G0378; G0480

== ENCOUNTER 2018-05-17 18:53 | Observation (INO) | payer MEDICAID, SELFPAY ==
[2018-05-17 18:56] VITALS: BP 144/70; PULSE 89; RESP 26; TEMP 36.9; O2SAT 95; BMI 78.2
--- NOTE | 2018-05-17 19:28 | ED.VISSUMM ---
- ER Visit Summary Date of Service: 05/17/18 Chief Complaint: [] Extensive lymphedema infection to the buttock left hip anterior abdominal wall History of Present Illness: The patient is a 47 M [] is a very large gentleman with a BMI, of 80, he is bed confined, he cannot walk, he has extensive marked lymphedema chronically he is known to have some type of an ulcer or lesion to the skin involving the left posterior buttock region he also has infection and drainage involving the popliteal fossa as his knee is constantly flexed, he has infection and drainage from the abdominal wall pannus this is all ongoing, is gotten to the point where he could no longer function and be at home as he is basically bed confined no one helps him attempts were made to place him in a nursing center however he was sent to the emergency department so he could be treated for the infections/cellulitis/ulcers before [facility] placement Physical Examination: [] General, no distress resting comfortably he is listed to the left and percent prefers laying on the left he is a very large gentleman HEENT is generally unremarkable The neck is supple no adenopathy Cardiovascular, regular rate and rhythm Lungs, clear bilateral diminished Abdomen, soft nontender, there is a large pannus and under the pannus there is redness and drainage there is no fluctuance or subcu air, Extremities, he has his left knee is bent he has marked lymphedema within the popliteal fossa the skin is denuded excoriated and there is some thick yellow fluid there is no again subcu air fluctuance or crepitus, To the left side of the leg into the left buttock area there is redness and some warmth and some discomfort he indicates he has an ulcer to this area but even with using multiple staff members we could not fully roll him to fully expose his back and sacral area, his area was edematous without any signs of foreign years or active infection Neurologic, awake alert answering questions appropriately moving all 4 extremities, he has very limited range of motion to his lower extremities at baseline he indicates that basically all of these areas of infection are chronic and he said no therapy, he indicates he is making urine he is having bowel habits and has been bed confined for some time Test Results: [] Emergency Department Course and Treatment: [] Given all of the above screening labs IV fluids and we have asked the hospitalist team for further management Treatment Plan: [] Screening labs generally unremarkable see those reports we did discuss the case with hospitalist IV antibiotic started Disposition: [] Admit stable Impression: [] Extensive cellulitis skin ulceration lymphedema involving the left lower extremity anterior abdominal wall left sacral back area This note was generated with [employer] dictation software. It may contain incorrect words, spelling, and punctuation that were not noted in review of the chart prior to signing ED Disposition - Plan for ED Patient: Referrals: Fei Levi, IRRIGATOR SPRINKLING SYSTEM-C [Primary Care Provider] -
--- NOTE | 2018-05-17 19:33 | ED.DCSUM_ITS ---
- ER Visit Summary Date of Service: 05/17/18 Chief Complaint: [] Extensive lymphedema infection to the buttock left hip anterior abdominal wall History of Present Illness: The patient is a 47 M [] is a very large gentleman with a BMI, of 80, he is bed confined, he cannot walk, he has extensive marked lymphedema chronically he is known to have some type of an ulcer or lesion to the skin involving the left posterior buttock region he also has infection and drainage involving the popliteal fossa as his knee is constantly flexed, he has infection and drainage from the abdominal wall pannus this is all ongoing, is gotten to the point where he could no longer function and be at home as he is basically bed confined no one helps him attempts were made to place him in a nursing center however he was sent to the emergency department so he could be treated for the infections/cellulitis/ulcers before [facility] placement Physical Examination: [] General, no distress resting comfortably he is listed to the left and percent prefers laying on the left he is a very large gentleman HEENT is generally unremarkable The neck is supple no adenopathy Cardiovascular, regular rate and rhythm Lungs, clear bilateral diminished Abdomen, soft nontender, there is a large pannus and under the pannus there is redness and drainage there is no fluctuance or subcu air, Extremities, he has his left knee is bent he has marked lymphedema within the popliteal fossa the skin is denuded excoriated and there is some thick yellow fluid there is no again subcu air fluctuance or crepitus, To the left side of the leg into the left buttock area there is redness and some warmth and some discomfort he indicates he has an ulcer to this area but even with using multiple staff members we could not fully roll him to fully expose his back and sacral area, his area was edematous without any signs of foreign years or active infection Neurologic, awake alert answering questions appropriately moving all 4 extremities, he has very limited range of motion to his lower extremities at baseline he indicates that basically all of these areas of infection are chronic and he said no therapy, he indicates he is making urine he is having bowel habits and has been bed confined for some time Test Results: [] Emergency Department Course and Treatment: [] Given all of the above screening labs IV fluids and we have asked the hospitalist team for further management Treatment Plan: [] Screening labs generally unremarkable see those reports we did discuss the case with hospitalist IV antibiotic started Disposition: [] Admit stable Impression: [] Extensive cellulitis skin ulceration lymphedema involving the left lower extremity anterior abdominal wall left sacral back area This note was generated with [employer] dictation software. It may contain incorrect words, spelling, and punctuation that were not noted in review of the chart prior to signing ED Disposition - Plan for ED Patient: Referrals: Fei Levi, SUPERVISOR STOCK RANCH-C [Primary Care Provider] -
[2018-05-17] MEDS: 0.9% Normal Saline 1,000 ML 125 ML IV (20:34)
[2018-05-17] MEDS: Ondansetron 4 MG/2 ML Vial IV (20:35)
[2018-05-17] MEDS: HYDROmorphone 1 MG/ML Syringe IV (20:35)
[2018-05-17 20:45] VITALS: BP 112/100; PULSE 52; RESP 18; TEMP 37.6; O2SAT 93
[2018-05-17 20:54] LABS: Absolute Lymphocyte Count 1.43 X10^3/ul (0.83-4.51); Absolute Neutrophil Count 4.1 X10^3/uL (2.0-7.7); Basophil# 0.03 X10^3/uL; Basophil% 0.5 % (0-1); Eosinophil# 0.26 X10^3/uL; Eosinophils% 4.1 % (0-5); Hematocrit 43.6 % (40-54); Lymphocyte # 1.43 X10^3/ul (4.0); Lymphocyte % 22.5 % (19-41); Mean Corp Hgb Conc 32.1 g/gl (32-36); Mean Corpuscular Hgb 27.5 pg (27.0-32.0); Mean Corpuscular Volume 85.5 fL (80-94); Mean Platelet Vol. 9.6 fl (6.2-12.0); Monocyte# 0.56 X10^3/uL; Monocyte% 8.8 % (0-10); Neutrophil # 4.06 X10^3/uL (2.7-7.7); Neutrophil % 63.8 % (47-70); POSITIVE COUNT NO; POSITIVE DIFFERENTIAL NO; POSITIVE MORPHOLOGY NO; Platelet Count 161 K/mm3 (150-450); RBC Distribution Width CV 13.9 % (11.6-14.6); RBC Distribution Width SD 43.3 fl (35.1-43.9); White Blood Count 6.4 K/mm3 (4.4-11.0)
[2018-05-17 21:00] VITALS: BP 112/72; PULSE 84; RESP 18; O2SAT 96
[2018-05-17 21:14] LABS: AST(SGOT) 13 U/L (15-37); Alanine Aminotransfer ALT/SGPT 20 U/L (16-61); Albumin, Serum 3.3 g/dL (3.2-5.0); Alkaline Phosphatase 79 U/L (45-117); Anion Gap 4 (5-15); BUN 10 mg/dL (7-18); BUN/Creat Ratio 18.7 RATIO (10-20); Bilirubin, Direct 0.16 mg/dL (0.00-0.30); Calcium,Total 8.6 mg/dL (8.5-10.1); Chloride 100 mmol/L (98-107); Creatinine, Serum 0.54 mg/dL (0.70-1.30); EST Glomerular Filtration Rate 176 mL/min (>60); Est Glom Filt Rate - Afr Amer 213 mL/min (>60); Estimated Creatinine Clearance 178.37 ml/min; Globulin 4.5 g/dL (2.2-4.2); Glucose 108 mg/dL (74-106); Lipase 30 U/L (73-393); Protein, Total 7.8 g/dL (6.4-8.2); Sodium Level 137 mmol/L (136-145)
[2018-05-17 21:29] LABS: Mucous, Urine 0 SEEN /hpf (<or=2+); Red Blood Cells-Urine 0 SEEN /hpf (0-5); Squamous Epithelial Cells - UA 0 SEEN /hpf (0-5)
[2018-05-17 21:33] LABS: Color, Urine Yellow (Yellow); Glucose, Dipstick Normal (Normal); Ketone-Dipstick Negative (Negative); Leukocyte Esterase-Dipstick 25 /ul (Negative); Nitrite-Dipstick Negative (Negative); Occult Blood-Urine 10 /ul (Negative); Protein-Dipstick Negative (Negative); Urine Bilirubin Dipstick Negative (Negative); Urine Clarity Clear (Clear); Urine Urobilinogen 1 mg/dl (Normal)
[2018-05-17 21:38] LABS: White Blood Cells 0-5 SEEN /hpf (0-5)
[2018-05-17 21:39] LABS: Bacteria 2+ /hpf (None Seen)
--- NOTE | 2018-05-17 22:44 | PCM.HP.STD ---
History of Present Illness Date of Admission: 05/17/18 Chief Complaint: cellulitis The patient is a 47 year old M with a history of super morbid obesity as well as lymphedema of his lower extremities. Was admitted through the ED on 05/17/2018 with a complaint of cellulitis. According to patient, he was evaluated by staff of a penitentiary for admission there and was found to have cellulitis of his lower extremities as well as ulcers on his back. He was therefore brought to the ED to be assessed for these as they needed to be taking care of before he would be admitted to the penitentiary. He denied any fever or chills, and cough or chest pain, and palpitations, any dizziness, any abdominal pain, any diarrhea vomiting. Patient lives with his mother and states his mother has arthritis and is not able to care for him. Patient states he is unable to care for himself and is unable to clean himself or perform any activities of daily living on account of his super morbid obesity. He had a low-grade fever of 99.6 Fahrenheit in the ED but vitals were otherwise stable. Chemistry was essentially unremarkable and CBC showed no leukocytosis with white cell count being 6.4. He has been admitted to manage for cellulitis of the lower extremity as well as the abdominal pannus and lymphedema. [] Past Medical History Past Medical History (Chronic Problems): Chronic Problems (Last Reviewed 11/17/17 @ 06:36 by Zeus Faust MD) Chronic acquired lymphedema (Chronic) Morbid obesity with BMI of 70 and over, adult (Chronic) BMI 82 260 kg Alcohol abuse (Chronic) Polysubstance abuse (Chronic) Medical History: Medical History (Last Reviewed 11/17/17 @ 06:36 by Zeus Faust MD) Lymphedema I89.0 Morbid obesity E66.01 Allergies No Known Allergies Allergy (Verified 05/17/18 18:55) Home Medications: Ambulatory Orders Medication Instructions Recorded Cholecalciferol (Vitamin D3) 50,000 units PO QWEEK 09/12/17 [Vitamin D3] Surgical History: no surgical history Psychiatric History: No pertinent psych hx Lives: With Family Smoking Status: Former smoker Alcohol: None Drugs: None - *Family History Maternal History Items: No pertinent history, - - no heart disease Paternal History Items: Cancer - His father had lymph node cancer., - Review of Systems Constitutional: Denies: Chills, Fever, Malaise, Weakness, Weight Change, Fatigue Eyes: Denies: Blurred vision HEENT: Denies: Head Aches, Sinus Congestion, Sinus Drainage Cardiovascular: Denies: Chest Pain, Palpitations Respiratory: Denies: Cough, Shortness of Breath, Shortness of breath at rest, Shortness of breath upon exertion, Sputum production, Wheezing Gastrointestinal: Denies: Abdominal Pain, Nausea, Vomiting Genitourinary: Denies: Dysuria Musculoskeletal: Denies: Arm Pain, Back Pain, Joint Pain, Joint Tenderness Skin: Denies: Rash, Wounds Neurological: Denies: Numbness, Tingling, Focal weakness Psychiatric: Denies: Anxiety, Depression, Homicidal Ideations, Suicidal Ideations Hematologic/ Lymphatic: Denies: Easy Bruising, Easy Bleeding VTE Information - Inpt Only VTE Present on Admission: No VTE Pharm Prophylaxis ordered?: Yes - Physical Exam General: Alert, Oriented x3, Cooperative, No apparent distress, - - supermorbid obesity HEENT: Atraumatic, PERRLA, EOMI, Normocephalic Oral: Dry Mucosa Neck: Supple, No JVD, Negative Carotid Bruits Lungs: Clear to auscultation, Normal air movement, No rhonchi, No wheeze, No rales, - - on 3L Cardiovascular: Regular rate, Regular Rhythm, Normal S1, Normal S2, No murmurs Abdomen: Bowel Sounds Present, Soft, Non Tender, Non-Distended, No Hepato-splenomegaly, - - very obese abdomen; erythematous patches with offensive discharge below abdominal pannus Extremities: - - Thickened, scaly skin on both LEs, worse on the LLE. has ulceration at back of left knee, with very offensive discharge and thick crud formation. Lymphedema of both LEs Skin: - - as under extremities. Lymphatic: No Cervical, Supraclavicular, or Inguinal Adenopathy Neurological: Cranial nerves II-XII grossly intact, Neuro grossly intact, Motor Exam 5/5 strength throughout Psych/Mental Status: Normal Affect, Appropriate, Alert and oriented to time, place, person, mood and affect Vital Signs Temp Pulse Resp BP Pulse Ox 99.6 F H 84 18 112/72 96 05/17/18 20:45 05/17/18 21:00 05/17/18 21:00 05/17/18 21:00 05/17/18 21:00 Oxygen Flow Rate (L/min) 3 Oxygen Delivery Method Room Air Weight: 545 lb 3.25 oz Body Mass Index (BMI) 78.2 Finger Stick Blood Glucose 114 Laboratory Tests Past 24 Hrs 05/17/18 05/17/18 05/17/18 20:35 20:35 21:20 WBC 6.4 RBC 5.10 Hgb 14.0 Hct 43.6 MCV 85.5 MCH 27.5 MCHC 32.1 RDW 13.9 RDW Differential 43.3 Plt Count 161 MPV 9.6 Immature Gran % (Auto) 0.300 Neut % (Auto) 63.8 Lymph % (Auto) 22.5 [place] % (Auto) 8.8 Eos % (Auto) 4.1 Baso % (Auto) 0.5 Absolute Neuts (auto) 4.1 Absolute Lymphs (auto) 1.43 Total Counted Not Reportable Sodium 137 Potassium 4.0 Chloride 100 Carbon Dioxide 33.0 H Anion Gap 4 L BUN 10 Creatinine 0.54 L Estim Creat Clear Calc 178.37 Est GFR (MDRD) Af Amer 213 Est GFR (MDRD) Non-Af 176 BUN/Creatinine Ratio 18.7 Glucose 108 H Calcium 8.6 Total Bilirubin 0.50 Direct Bilirubin 0.16 AST 13 L ALT 20 Alkaline Phosphatase 79 Total Protein 7.8 Albumin 3.3 Globulin 4.5 H Lipase 30 L Urine Color Yellow Urine Clarity Clear Urine pH 7.0 Ur Specific [place] 1.010 Urine Protein Negative Urine Glucose (UA) Normal Urine Ketones Negative Urine Occult Blood 10 H Urine Nitrite Negative Urine Bilirubin Negative Urine Urobilinogen 1 H Ur Leukocyte Esterase 25 H Urine RBC 0 SEEN Urine WBC 0-5 SEEN Ur Squamous Epith Cells 0 SEEN Urine Bacteria 2+ Urine Mucus 0 SEEN Assessment/Plan All Active Problems (Last Reviewed 11/17/17 @ 06:36 by Zeus Faust MD) Elevated blood pressure reading without diagnosis of hypertension (Acute) Cellulitis (Ruled-out) Cellulitis and abscess of leg (Ruled-out) Debility (Acute) Candidiasis (Acute) 47 y/o male admitted with a complaint of cellulitis of the LEs 1. Cellulitis of the RLE and abdominal pannus patient is very disheveled and is unable to care for himself no leucocytosis, though he did have a mild fever on admission Admit to [facility] Will get blood cultures and wound cultures. Consult wound care nurse. Will start on IV vancomycin and Zosyn in the ED. Will DC this and continue on just IV vancomycin for now pending culture results. PT OT consult. 2. Vitamin D deficiency: 50,000 units of vitamin D daily. 3. Super morbid obesity: BMI is over 78. This complicates care and expected recovery. Prophylaxis: lovenox Code Visit Inpatient E&M: 74584 Init Hosp L3
[2018-05-17 23:41] VITALS: BMI 77.9
[2018-05-17 23:42] VITALS: BP 136/63; PULSE 87; RESP 24; TEMP 37.1; O2SAT 100
[2018-05-17 23:49] VITALS: O2SAT 100; BMI 77.9
--- NOTE | 2018-05-18 02:45 | PCM.RX.CS ---
Consult Pharmacy has been consulted to manage selected antiobiotic: Vancomycin Type of Consult: New start Suspected Infection: Skin/Soft tissue Labs: Sodium 137 mmol/L (136-145) 05/17/18 20:35 Potassium 4.0 mmol/L (3.5-5.1) 05/17/18 20:35 Chloride 100 mmol/L (98-107) 05/17/18 20:35 Carbon Dioxide 33.0 mmol/L (21.0-32.0) H 05/17/18 20:35 Anion Gap 4 (5-15) L 05/17/18 20:35 BUN 10 mg/dL (7-18) 05/17/18 20:35 Creatinine 0.54 mg/dL (0.70-1.30) L 05/17/18 20:35 Est GFR (MDRD) Af Amer 213 mL/min (>60) 05/17/18 20:35 Est GFR (MDRD) Non-Af 176 mL/min (>60) 05/17/18 20:35 BUN/Creatinine Ratio 18.7 RATIO (10-20) 05/17/18 20:35 Glucose 108 mg/dL (74-106) H 05/17/18 20:35 Weight used for dosin.9 kg Pharmacy Plan for Drug Dosing: Pharmacy Service will continue to monitor and adjust dosing as required.
--- NOTE | 2018-05-18 03:24 | PCM.RX.CS ---
Consult Pharmacy has been consulted to manage selected antiobiotic: Vancomycin Type of Consult: New start Suspected Infection: Skin/Soft tissue Labs: Sodium 137 mmol/L (136-145) 05/17/18 20:35 Potassium 4.0 mmol/L (3.5-5.1) 05/17/18 20:35 Chloride 100 mmol/L (98-107) 05/17/18 20:35 Carbon Dioxide 33.0 mmol/L (21.0-32.0) H 05/17/18 20:35 Anion Gap 4 (5-15) L 05/17/18 20:35 BUN 10 mg/dL (7-18) 05/17/18 20:35 Creatinine 0.54 mg/dL (0.70-1.30) L 05/17/18 20:35 Est GFR (MDRD) Af Amer 213 mL/min (>60) 05/17/18 20:35 Est GFR (MDRD) Non-Af 176 mL/min (>60) 05/17/18 20:35 BUN/Creatinine Ratio 18.7 RATIO (10-20) 05/17/18 20:35 Glucose 108 mg/dL (74-106) H 05/17/18 20:35 Weight used for dosin.9 kg Estimated Creatinine Clearance: 178.36 Goal Trough: 15-20 mcg/mL Pharmacy Plan for Drug Dosing: Pharmacy Service will continue to monitor and adjust dosing as required. Medications Vancomycin HCl 1,750 mg/ (Sodium Chloride) 535 mls @ 250 mls/hr IV Q12H IZABEL Discontinued Medications Vancomycin HCl 1,500 mg/ (Sodium Chloride) 530 mls @ 250 mls/hr IV X1 ONE Stop: 05/17/18 21:34 Last Admin: 05/17/18 21:36 Dose: 250 mls/hr Follow-Up Labs: Trough Vancomycin Labs to be done on [date and time ordered]: 05/19@0900
[2018-05-18 05:41] LABS: Absolute Lymphocyte Count 0.99 X10^3/ul (0.83-4.51); Absolute Neutrophil Count 3.6 X10^3/uL (2.0-7.7); Basophil# 0.02 X10^3/uL; Basophil% 0.4 % (0-1); Eosinophil# 0.24 X10^3/uL; Eosinophils% 4.2 % (0-5); Hematocrit 42.2 % (40-54); Hemoglobin 13.1 g/dl (13.0-16.5); Lymphocyte # 0.99 X10^3/ul (4.0); Lymphocyte % 17.4 % (19-41); Mean Corpuscular Hgb 27.1 pg (27.0-32.0); Mean Corpuscular Volume 87.2 fL (80-94); Mean Platelet Vol. 9.7 fl (6.2-12.0); Monocyte% 14.1 % (0-10); Neutrophil # 3.63 X10^3/uL (2.7-7.7); Neutrophil % 63.7 % (47-70); Platelet Count 163 K/mm3 (150-450); RBC Distribution Width CV 14.1 % (11.6-14.6); RBC Distribution Width SD 44.4 fl (35.1-43.9); Red Blood Count 4.84 M/mm3 (4.6-6.2); White Blood Count 5.7 K/mm3 (4.4-11.0)
[2018-05-18 05:47] LABS: POSITIVE COUNT NO; POSITIVE DIFFERENTIAL NO; POSITIVE MORPHOLOGY NO
[2018-05-18 05:50] VITALS: BP 110/66; PULSE 106; RESP 18; TEMP 37.1; O2SAT 94
[2018-05-18 05:57] LABS: Anion Gap 7 (5-15); BUN 10 mg/dL (7-18); BUN/Creat Ratio 22.1 RATIO (10-20); Calcium,Total 8.1 mg/dL (8.5-10.1); Chloride 102 mmol/L (98-107); Creatinine, Serum 0.45 mg/dL (0.70-1.30); EST Glomerular Filtration Rate 214 mL/min (>60); Est Glom Filt Rate - Afr Amer 259 mL/min (>60); Estimated Creatinine Clearance 214.04 ml/min; Glucose 107 mg/dL (74-106); Sodium Level 138 mmol/L (136-145)
[2018-05-18 07:46] VITALS: O2SAT 95
[2018-05-18] MEDS: Cefazolin 2 GM in 0.9% Normal Saline 100 ML IV ×2 (09:33→14:33)
[2018-05-18] MEDS: Enoxaparin 40 MG/0.4 ML Syringe SC (09:33)
[2018-05-18 10:03] VITALS: BP 147/70; PULSE 89; RESP 14; TEMP 36.6; O2SAT 95
--- NOTE | 2018-05-18 14:00 | CASEMGMT ---
OSWALDO CHASE Face to Face with patient for initial transition planning/care coordination assessment. OSWALDO CHASE introduced self and role at [facility]. Patient lying in bed, alert and oriented. Patient willing to participate in assessment and is able to answer all questions appropriately. Care providers, pharmacy, and demographics verified. Patient wishes to discharge to [facility]. Patient states he has no further needs or concerns at this time. RAVEN Tuttle updated regarding request for SNF placement at [facility]. PCP: Viv WAITE Specialists: None Preferred Pharmacy: [facility] Insurance: [facility] community plan Prescription Benefit: yes Living Will/HPOA: none LNOK: Mother Living Arrangements: Patient lives with mother, who assists him with care, in a first floor apartment with step and railing. Transportation: Mother DME/HHC: Patient states that he has a BSC, hospital bed, walker, wc, oxygen 3lpm through [facility] [place]. Patient denies home bipap, cpap, or nebulizer. Patient denies previous HHC. Patient states that he has been to [facility] previously. Patient states that he was working with [facility] to get to their facility. Disposition Plan: Apoorva RAYA, RN, CM
[2018-05-18] MEDS: 0.9% NaCl IVPB Med Flush (250 mL) 15 ML IV (14:33)
--- NOTE | 2018-05-18 15:33 | NURSING ---
Was asked to see patient for skin issues, lymphedema, etc. pt is known to this nurse. pt was sent to [facility] after last admission. pt is not able to care for himself at home. pt is very unkept. the left leg crease at the knee area with very foul odor. most likely a yeast infection d/t moisture. wash thoroughly with soap and water. pat dry. orders received for nystatin powder. placed pillow case for now to assist in absorbing the drainage. pillow case to abdominal folds as well. will monitor.
--- NOTE | 2018-05-18 17:02 | CASEMGMT ---
Social Work Note RN RENA Lee updated this worker that pt is interested in [facility] at discharge. SW faxed referral to [facility]. PT/OT have been ordered. SW to fax PT/OT evaluations when available. Plan: [facility] pending acceptance and pre-cert Apoorva Tuttle HVAC COMMERCIAL SALESPERSON, INTERVENTION MANAGER
--- NOTE | 2018-05-18 19:08 | PN_ITS ---
Subjective: Patient was seen and examined today, patient states he wants to go to [facility]f because they know how to treat lymphedema. The wound care nurse saw the patient today and feels that the area on the patient's left leg which was thought to be infected is probably just overgrown with yeast, the area was cleaned and nystatin was ordered for the area. I have decided at this time to stop the patient's Ancef and observe the patient. We are attempting to get him placed in a group home facility. It is obvious the patient has major self-neglect and super morbid obesity, his mother is unable to care for him at home. - Physical Exam General: Alert, Oriented x3, Cooperative, No apparent distress, Well developed HEENT: Atraumatic, PERRLA, EOMI, Normocephalic Oral: Moist Mucosa Neck: Supple, No Nuchal Rigidity, Trachea Midline, Thyroid Normal Size and Texture Lungs: Clear to auscultation, Normal air movement, No rhonchi, No wheeze, No rales Cardiovascular: Regular rate, Regular Rhythm, Normal S1, Normal S2, No murmurs, No Ectopic Activity, PMI Normal, No rub noted, No Gallop Abdomen: Bowel Sounds Present, Soft, Non Tender, Non-Distended, Obese Extremities: Capillary Refill Less than 3 Seconds, - - Severe lymphedematous changes are noted over the left leg, there is also evidence of lymphedematous changes of the right lower leg. Musculoskeletal: No Tenderness to Palpation of Joints or Extremities Neurological: Cranial nerves II-XII grossly intact, Neuro grossly intact, Sensory exam intact to light touch and pain, Coordination normal Psych/Mental Status: Normal Affect, Appropriate, Alert and oriented to time, place, person, mood and affect Vital Signs Temp Pulse Resp BP Pulse Ox 97.8 F 89 14 147/70 H 95 05/18/18 10:03 05/18/18 10:03 05/18/18 10:03 05/18/18 10:05/18/18 10:03 Oxygen Flow Rate (L/min) 3 Oxygen Delivery Method Nasal Cannula Weight: 246.301 kg Body Mass Index (BMI) 77.9 Finger Stick Blood Glucose 114 Intake and Output for Last 24 Hours 05/16/18 05/17/18 05/18/18 23:59 23:59 23:59 Intake Total 570 / 570 2539 / 2539 Output Total 3000 / 3000 Balance 570 / 570 -461 / -461 Microbiology Past 72 Hours 05/18/18 01:35 Gram Stain - Final Wound - Knee Laboratory Tests Past 24 Hrs 05/17/18 05/17/18 05/17/18 20:35 20:35 21:20 WBC 6.4 RBC 5.10 Hgb 14.0 Hct 43.6 MCV 85.5 MCH 27.5 MCHC 32.1 RDW 13.9 RDW Differential 43.3 Plt Count 161 MPV 9.6 Immature Gran % (Auto) 0.300 Neut % (Auto) 63.8 Lymph % (Auto) 22.5 [place] % (Auto) 8.8 Eos % (Auto) 4.1 Baso % (Auto) 0.5 Absolute Neuts (auto) 4.1 Absolute Lymphs (auto) 1.43 Total Counted Not Reportable Sodium 137 Potassium 4.0 Chloride 100 Carbon Dioxide 33.0 H Anion Gap 4 L BUN 10 Creatinine 0.54 L Estim Creat Clear Calc 178.37 Est GFR (MDRD) Af Amer 213 Est GFR (MDRD) Non-Af 176 BUN/Creatinine Ratio 18.7 Glucose 108 H Calcium 8.6 Total Bilirubin 0.50 Direct Bilirubin 0.16 AST 13 L ALT 20 Alkaline Phosphatase 79 Total Protein 7.8 Albumin 3.3 Globulin 4.5 H Lipase 30 L Urine Color Yellow Urine Clarity Clear Urine pH 7.0 Ur Specific [place] 1.010 Urine Protein Negative Urine Glucose (UA) Normal Urine Ketones Negative Urine Occult Blood 10 H Urine Nitrite Negative Urine Bilirubin Negative Urine Urobilinogen 1 H Ur Leukocyte Esterase 25 H Urine RBC 0 SEEN Urine WBC 0-5 SEEN Ur Squamous Epith Cells 0 SEEN Urine Bacteria 2+ Urine Mucus 0 SEEN 05/18/18 05/18/18 05:24 05:24 WBC 5.7 RBC 4.84 Hgb 13.1 Hct 42.2 MCV 87.2 MCH 27.1 MCHC 31.0 L RDW 14.1 RDW Differential 44.4 H Plt Count 163 MPV 9.7 Immature Gran % (Auto) 0.200 Neut % (Auto) 63.7 Lymph % (Auto) 17.4 L [place] % (Auto) 14.1 H Eos % (Auto) 4.2 Baso % (Auto) 0.4 Absolute Neuts (auto) 3.6 Absolute Lymphs (auto) 0.99 Total Counted Not Reportable Sodium 138 Potassium 4.0 Chloride 102 Carbon Dioxide 29.0 Anion Gap 7 BUN 10 Creatinine 0.45 L Estim Creat Clear Calc 214.04 Est GFR (MDRD) Af Amer 259 Est GFR (MDRD) Non-Af 214 BUN/Creatinine Ratio 22.1 H Glucose 107 H Calcium 8.1 L Total Bilirubin Direct Bilirubin AST ALT Alkaline Phosphatase Total Protein Albumin Globulin Lipase Urine Color Urine Clarity Urine pH Ur Specific [place] Urine Protein Urine Glucose (UA) Urine Ketones Urine Occult Blood Urine Nitrite Urine Bilirubin Urine Urobilinogen Ur Leukocyte Esterase Urine RBC Urine WBC Ur Squamous Epith Cells Urine Bacteria Urine Mucus Medical Necessity - Tobacco Use Smoking Status: Former smoker Assessment/Plan All Active Problems (Last Reviewed 11/17/17 @ 06:36 by Zeus Faust MD) Elevated blood pressure reading without diagnosis of hypertension (Acute) Cellulitis (Ruled-out) Cellulitis and abscess of leg (Ruled-out) #1 super morbid obesity with [id number] will need placement in group home facility, this will probably be a permanent placement #2 debility secondary to #1 #3 superficial bacterial and yeast overgrowth of left leg due to poor personal hygiene-wound nurse saw the patient today and ordered medication for this area, again I have decided to stop the patient's IV antibiotics, I do not feel he has a cellulitis. #4 chronic lymphedema #5 chronic hypoxic respiratory failure secondary to hypoventilation-patient states that he is on chronic oxygen at home #6 elevated blood pressure-resolved at this time without use of medication Code Visit Inpatient E&M: 57824 Subs Hosp L2
[2018-05-18] MEDS: Nystatin Powder 15gm Bottle 1 APPLIC TOPICAL (21:10)
[2018-05-18 21:19] VITALS: BP 105/54; PULSE 81; RESP 18; TEMP 37.3; O2SAT 98
[2018-05-19 03:20] VITALS: BP 120/72; PULSE 75; RESP 16; TEMP 36.6; O2SAT 99
[2018-05-19 07:30] VITALS: O2SAT 99
[2018-05-19 08:27] VITALS: BP 128/77; PULSE 83; RESP 18; TEMP 36.7; O2SAT 93
[2018-05-19] MEDS: Enoxaparin 40 MG/0.4 ML Syringe SC (08:35)
[2018-05-19] MEDS: Nystatin Powder 15gm Bottle 1 APPLIC TOPICAL ×2 (13:31→21:31)
--- NOTE | 2018-05-19 13:41 | NURSING ---
In to reassess patient's skin. pt is currently getting a bath. still quite a bit of yeast odor noted. there is less redness noted to the left leg. do not feel this was cellulitis. most likely from chronic lymphedema. patient is getting nystatin to abdominal folds and creases of the legs. pt is awaiting [facility] placement. has been turned down by one chcf already. will follow as needed.
[2018-05-19 14:00] VITALS: BP 128/58; PULSE 81; RESP 18; TEMP 36.6; O2SAT 95
--- NOTE | 2018-05-19 14:10 | CASEMGMT ---
Social Work Note SW received message from Jessica Wells at [facility] ([phone]) stating they are unable to accept pt due to pt's weight. Jessica recommended [facility] [place] that may be able to accommodate pt's weight. RAVEN met with pt. SW introduced self and role at [facility]. Pt is alert and orientated x3. SW informed pt that [facility] is unable to accept pt. Pt states I know they called me and told me. SW informed pt that [facility] recommended [facility] [place]. Pt is agreeable to referral being sent to [facility]. SW asked pt if he would be agreeable to returning to either [facility] or [facility] as these are SNF he has been at before. Pt states no, they don't have lymphedema treatment. SW explained referral process and pre-cert. Pt states understanding. RAVEN placed a call to [facility] and left a message for Leigh Ann in admissions regarding referral. RAVEN [facility]ed [facility] [place]. Plan: SNF pending acceptance and pre-cert Apoorva Tuttle COMMUNITY ADMINISTRATOR, CULINARY WORKER
--- NOTE | 2018-05-19 15:13 | CASEMGMT ---
Social Work Note SW received message from Leigh Ann at [facility] [place] stating she would like to send liaison to [facility] tomorrow to meet with pt. RAVEN placed a call back to Leigh Ann and informed her that is ok. Jessica from [facility] came to [facility] and met with pt and updated this SW that [facility] has sister facility [facility] in [place] who is able to accommodate bariatric patients and also [facility] who is able to accommodate bariatric patients. Jessica states that she mentioned to pt that this worker would possibly be sending referrals to additional referrals. RAVEN placed a call to Lala at [facility] and per Lala she is able to accept pt up to 650 pounds and will review referral. RAVEN faxed referral to [facility]. RAVEN informed Leigh Ann and Lala at [facility] to not submit for pre-cert until they inform this worker if they are able to accept pt. Plan: SNF pending acceptance and pre-cert Apoorva Tuttle CLOSING SPECIALIST, THERAPY MANAGER
--- NOTE | 2018-05-19 18:48 | NURSING ---
GARCIA CATHETER DC'D PER ORDER
--- NOTE | 2018-05-19 19:18 | PN_ITS ---
Subjective: Patient seen and examined today, on 1 [facility] refused to accept the patient due to his super morbid obesity. Patient has no complaints today at the time of my examination. - Physical Exam General: Alert, Oriented x3, Cooperative HEENT: Atraumatic, PERRLA, EOMI, Normocephalic Neck: Supple, No JVD, Negative Carotid Bruits Lungs: Clear to auscultation, Normal air movement, No rhonchi, No wheeze, No rales Cardiovascular: Regular rate, Regular Rhythm, Normal S1, Normal S2, No murmurs, No Ectopic Activity Abdomen: Bowel Sounds Present, Soft, Non Tender, Obese Extremities: Capillary Refill Less than 3 Seconds, - - Bilateral lymphedematous changes are noted in the legs worse on the left Skin: No rashes Neurological: Cranial nerves II-XII grossly intact, Neuro grossly intact, Sensory exam intact to light touch and pain, Coordination normal Psych/Mental Status: Normal Affect, Appropriate, Alert and oriented to time, place, person, mood and affect Vital Signs Temp Pulse Resp BP Pulse Ox 97.8 F 81 18 128/58 H 95 05/19/18 14:00 05/19/18 14:00 05/19/18 14:00 05/19/18 14:00 05/19/18 14:00 Oxygen Flow Rate (L/min) 2 Oxygen Delivery Method Room Air Weight: 246.301 kg Body Mass Index (BMI) 77.9 Finger Stick Blood Glucose 114 Intake and Output for Last 24 Hours 05/17/18 05/18/18 05/19/18 23:59 23:59 23:59 Intake Total 570 / 570 2539 / 2539 2143 / 2143 Output Total 3000 / 3000 3500 / 3500 Balance 570 / 570 -461 / -461 -1357 / -1357 Microbiology Past 72 Hours 05/18/18 01:35 Gram Stain - Final Wound - Knee Wound Culture - Preliminary Mixed Gram Positive Organisms Medical Necessity - Tobacco Use Smoking Status: Former smoker Assessment/Plan All Active Problems (Last Reviewed 11/17/17 @ 06:36 by Zeus Faust MD) Elevated blood pressure reading without diagnosis of hypertension (Acute) Cellulitis (Ruled-out) Cellulitis and abscess of leg (Ruled-out) #1 super morbid obesity with [id number]-rzkpzno will need placement in care home facility, this will probably be a permanent placement #2 debility secondary to #1 #3 superficial bacterial and yeast overgrowth of left leg due to poor personal hygiene #4 chronic lymphedema #5 chronic hypoxic respiratory failure secondary to hypoventilation-patient states that he is on chronic oxygen at home #6 elevated blood pressure-resolved at this time without use of medication Code Visit Inpatient E&M: 66402 Subs Hosp L2
[2018-05-19 21:30] VITALS: BP 133/75; PULSE 87; RESP 18; TEMP 36.8; O2SAT 100
[2018-05-19] MEDS: Menthol/Lanolin/Calamine/Znox 113 GM Tube 1 APPLIC TOPICAL (21:32)
[2018-05-19 23:22] VITALS: RESP 18
[2018-05-20 04:31] VITALS: BP 127/75; PULSE 74; RESP 18; TEMP 36.6; O2SAT 99
[2018-05-20 07:08] VITALS: O2SAT 96
[2018-05-20 09:09] VITALS: BP 108/75; PULSE 82; RESP 20; TEMP 36.5; O2SAT 99
--- NOTE | 2018-05-20 09:12 | CASEMGMT ---
Social Work Note Maia from [facility] in to meet with pt this morning. Maia states she will be taking her findings back to the team to discuss if they are able to accept pt. SW received message from Lala at [facility] stating they are able to accept pt and had questions regarding pt's polysubstance abuse Hx. SW reviewed pt's previous notes. Pt has history of using meth and crack but has denied recent use. Pt does state that he still occasionally drinks alcohol. SW updated pt that [facility] should be informing this worker soon if they are able to accept pt. SW informed pt that [facility] is able to accept pt. SW asked pt what his first choice of facilities is. Pt states that his first choice is [facility]. SW explained that this worker can wait to receive call from [facility] if they are able to accept pt but if they aren't able to then this worker will update [facility] to submit for pre-cert. Pt states understanding. SW waiting to hear from [facility] if they are able to accept pt. Plan: SNF pending acceptance and pre-cert Apoorva Tuttle SPA DIRECTOR/FINANCE, SUPERVISOR MOLDING
[2018-05-20] MEDS: Enoxaparin 40 MG/0.4 ML Syringe SC (09:15)
[2018-05-20] MEDS: Menthol/Lanolin/Calamine/Znox 113 GM Tube 1 APPLIC TOPICAL ×2 (09:30→23:42)
[2018-05-20] MEDS: Nystatin Powder 15gm Bottle 1 APPLIC TOPICAL ×2 (09:30→23:41)
--- NOTE | 2018-05-20 11:40 | CASEMGMT ---
Addendum entered by Apoorva Tuttle 05/20/18 14:18: SW placed a call to Lala at [facility] updated her that this worker is leaving for the day and to call [facility] main number if pre-cert is obtained. Green sheet on chart if pre-cert is obtained. RAVNE completed PAS/RR in [facility] and placed on pt's chart. Original Note: Addendum entered by Apoorva Tuttle 05/20/18 13:43: Pt updated on denial to [facility] and acceptance to [facility] pending pre-cert. Original Note: Social Work Note SW received message from Maia at [facility] stating they are unable to accept pt. RAVEN placed a call to Lala at [facility], updated her on pt's past history of polysubstance abuse. Lala is able to accept pt and will submit for pre-cert. RAVEN faxed updated clinicals to [facility]. Plan: [facility] pending pre-cert Apoorva Tuttle DISASSEMBLER, CHEMICAL TANK WORKER
[2018-05-20 15:34] VITALS: BP 122/68; PULSE 79; RESP 18; TEMP 36.9; O2SAT 96
--- NOTE | 2018-05-20 19:54 | PN_ITS ---
Subjective: Patient was seen and examined today, we are still waiting for insurance approval for the patient to go to a half-way facility. Patient has no complaints to this examiner today. - Physical Exam General: Alert, Oriented x3, Cooperative, No apparent distress, Well developed HEENT: Atraumatic, PERRLA, EOMI, Normocephalic Oral: Moist Mucosa Neck: Supple, No Nuchal Rigidity, Trachea Midline, Thyroid Normal Size and Texture Lungs: Clear to auscultation, Normal air movement, No rhonchi, No wheeze, No rales Cardiovascular: Regular rate, Regular Rhythm, Normal S1, Normal S2, No murmurs, No Ectopic Activity, PMI Normal, No rub noted, No Gallop Abdomen: Bowel Sounds Present, Soft, Non Tender, Non-Distended, Obese Extremities: Capillary Refill Less than 3 Seconds, - - Chronic lymphedematous changes are noted over both legs more so on the left Neurological: Cranial nerves II-XII grossly intact, Neuro grossly intact, Sensory exam intact to light touch and pain, Coordination normal Psych/Mental Status: Normal Affect, Appropriate, Alert and oriented to time, place, person, mood and affect Vital Signs Temp Pulse Resp BP Pulse Ox 98.5 F 79 18 122/68 H 96 05/20/18 15:34 05/20/18 15:34 05/20/18 15:34 05/20/18 15:34 05/20/18 15:34 Oxygen Flow Rate (L/min) 3 Oxygen Delivery Method Nasal Cannula Weight: 246.301 kg Body Mass Index (BMI) 77.9 Finger Stick Blood Glucose 114 Intake and Output for Last 24 Hours 05/18/18 05/19/18 05/20/18 23:59 23:59 23:59 Intake Total 2539 / 2539 2393 / 2393 Output Total 3000 / 3000 3500 / 3500 Balance -461 / -461 -1107 / -1107 Microbiology Past 72 Hours 05/18/18 01:35 Gram Stain - Final Wound - Knee Wound Culture - Preliminary Coag Negative Staph Coag Negative Staph#2 Coag Negative Staph#3 Gram positive kalen 05/18/18 00:25 Blood Culture - Preliminary Blood Culture (Wb) - Anticubital Right No growth in 48 hours. 05/17/18 20:35 Blood Culture - Preliminary Blood Culture (Wb) - Arm Right No growth in 48 hours. Medical Necessity - Tobacco Use Smoking Status: Former smoker Assessment/Plan All Active Problems (Last Reviewed 11/17/17 @ 06:36 by Zeus Faust MD) Elevated blood pressure reading without diagnosis of hypertension (Acute) Cellulitis (Ruled-out) Cellulitis and abscess of leg (Ruled-out) #1 super morbid obesity with [id number] will need placement in half-way facility, this will probably be a permanent placement #2 debility secondary to #1 #3 superficial bacterial and yeast overgrowth of left leg due to poor personal hygiene-no evidence of cellulitis at this time #4 chronic lymphedema #5 chronic hypoxic respiratory failure secondary to hypoventilation-patient states that he is on chronic oxygen at home #6 elevated blood pressure-resolved at this time without use of medication Code Visit Inpatient E&M: 20251 Subs Hosp L2
[2018-05-20 23:45] VITALS: BP 109/65; PULSE 76; RESP 18; TEMP 36.7; O2SAT 96
[2018-05-21 03:48] VITALS: RESP 18
[2018-05-21 06:23] VITALS: BP 113/70; PULSE 76; RESP 18; TEMP 36.8; O2SAT 98
[2018-05-21 10:30] VITALS: BP 123/75; PULSE 83; RESP 18; TEMP 36.8; O2SAT 94
[2018-05-21] MEDS: Menthol/Lanolin/Calamine/Znox 113 GM Tube 1 APPLIC TOPICAL (10:35)
[2018-05-21] MEDS: Nystatin Powder 15gm Bottle 1 APPLIC TOPICAL ×2 (10:35→21:21)
[2018-05-21] MEDS: Enoxaparin 40 MG/0.4 ML Syringe SC (10:37)
--- NOTE | 2018-05-21 11:02 | PCM.PN.HOSP ---
Subjective: Patient seen and examined. He had no complaints and felt well. Review of systems otherwise negative. He is awaiting insurance precertification for discharge to skilled nursing. Vitals/I&O's: Vital Signs Temp Pulse Resp BP Pulse Ox 98.3 F 83 18 123/75 H 94 05/21/18 10:30 05/21/18 10:30 05/21/18 10:30 05/21/18 10:30 05/21/18 10:30 Oxygen Flow Rate (L/min) 3 Oxygen Delivery Method Room Air Weight: 543 lb 0.012 oz Body Mass Index (BMI) 77.9 Finger Stick Blood Glucose 114 Intake and Output for Last 24 Hours 05/19/18 05/20/18 05/21/18 23:59 23:59 23:59 Intake Total 2393 / 2393 500 / 500 Output Total 3500 / 3500 Balance -1107 / -1107 500 / 500 General: Alert, Oriented x3, Cooperative, No apparent distress, - - Super morbid obesity. HEENT: Atraumatic, PERRLA, EOMI, Normocephalic Oral: Moist Mucosa Neck: Supple, No JVD, Negative Carotid Bruits Lungs: - - Mildly decreased breath sounds bibasilarly likely due to morbid obesity. On 2 L of oxygen. Cardiovascular: Regular rate, Regular Rhythm, Normal S1, Normal S2, No murmurs Abdomen: Bowel Sounds Present, Soft, Non Tender, Non-Distended, No Hepato-splenomegaly Extremities: No clubbing, No cyanosis, Capillary Refill Less than 3 Seconds, - - bilateral LE lymphedema Skin: - - hyperkeratinised, scaly skin on LEs Musculoskeletal: No Tenderness to Palpation of Joints or Extremities Lymphatic: No Cervical, Supraclavicular, or Inguinal Adenopathy Neurological: Cranial nerves II-XII grossly intact, Neuro grossly intact, Motor Exam 5/5 strength throughout Psych/Mental Status: Normal Affect, Appropriate, Alert and oriented to time, place, person, mood and affect Microbiology Past 72 Hours 05/18/18 01:35 Wound - Knee Gram Stain - Final 05/18/18 01:35 Wound - Knee Wound Culture - Final Coag Negative Staph Coag Negative Staph#2 Coag Negative Staph#3 Gram positive kalen 05/18/18 00:25 Blood Culture (Wb) - Anticubital Right Blood Culture - Preliminary No growth in 48 hours. 05/17/18 20:35 Blood Culture (Wb) - Arm Right Blood Culture - Preliminary No growth in 48 hours. Current Medications Calamine/Phenol (Calmoseptine Ointment) 1 applic TOPICAL BID IZABEL; Protocol Last Admin: 05/21/18 10:35 Dose: 1 applicatio Enoxaparin Sodium (Lovenox) 40 mg SC DAILY@1000 IZABEL Last Admin: 05/21/18 10:37 Dose: 40 mg Sodium Chloride () 250 mls @ 15 mls/hr IV .[id number] PRN PRN Reason: SALINE FLUSH Last Admin: 05/18/18 14:33 Dose: 15 mls/hr Magnesium Hydroxide (Milk Of Magnesia) 30 ml PO DAILY PRN PRN PRN Reason: Constipation Nystatin (Mycostatin Powder) 1 applic TOPICAL BID IZABEL; Protocol Last Admin: 05/21/18 10:35 Dose: 1 applicatio Sodium Chloride () 5 - 15 ml IV UD PRN PRN Reason: SALINE FLUSH Medical Necessity - Tobacco Use Smoking Status: Former smoker Assessment/Plan All Active Problems (Last Reviewed 11/17/17 @ 06:36 by Zeus Faust MD) Elevated blood pressure reading without diagnosis of hypertension (Acute) Cellulitis (Ruled-out) Cellulitis and abscess of leg (Ruled-out) 1. Debility due to super morbid obesity also complicated by self-neglect. Awaiting discharge to skilled nursing. 2. Chronic hypoxic respiratory failure due to obesity hypoventilation syndrome on 2L of oxygen, which is his baseline 3. Superficial baceterial and yeast overgrowth of LLE Due to poor personal hygiene. Wound culture of knee wound grew coagulase-negative staph and gram-positive kalen which was thought to be due to skin contamination. Has had no white cell count. Need to monitor. wound nurse on board 4. Chronic lymphedema: Stable. DVT prophylaxis: Lovenox. Code Visit Inpatient E&M: 67346 Subs Hosp L2
--- NOTE | 2018-05-21 11:07 | PN_ITS ---
Subjective: Patient seen and examined. He had no complaints and felt well. Review of systems otherwise negative. He is awaiting insurance precertification for discharge to assisted. Vitals/I&O's: Vital Signs Temp Pulse Resp BP Pulse Ox 98.3 F 83 18 123/75 H 94 05/21/18 10:30 05/21/18 10:30 05/21/18 10:30 05/21/18 10:30 05/21/18 10:30 Oxygen Flow Rate (L/min) 3 Oxygen Delivery Method Room Air Weight: 543 lb 0.012 oz Body Mass Index (BMI) 77.9 Finger Stick Blood Glucose 114 Intake and Output for Last 24 Hours 05/19/18 05/20/18 05/21/18 23:59 23:59 23:59 Intake Total 2393 / 2393 500 / 500 Output Total 3500 / 3500 Balance -1107 / -1107 500 / 500 General: Alert, Oriented x3, Cooperative, No apparent distress, - - Super morbid obesity. HEENT: Atraumatic, PERRLA, EOMI, Normocephalic Oral: Moist Mucosa Neck: Supple, No JVD, Negative Carotid Bruits Lungs: - - Mildly decreased breath sounds bibasilarly likely due to morbid obesity. On 2 L of oxygen. Cardiovascular: Regular rate, Regular Rhythm, Normal S1, Normal S2, No murmurs Abdomen: Bowel Sounds Present, Soft, Non Tender, Non-Distended, No Hepato- splenomegaly Extremities: No clubbing, No cyanosis, Capillary Refill Less than 3 Seconds, - - bilateral LE lymphedema Skin: - - hyperkeratinised, scaly skin on LEs Musculoskeletal: No Tenderness to Palpation of Joints or Extremities Lymphatic: No Cervical, Supraclavicular, or Inguinal Adenopathy Neurological: Cranial nerves II-XII grossly intact, Neuro grossly intact, Motor Exam 5/5 strength throughout Psych/Mental Status: Normal Affect, Appropriate, Alert and oriented to time, place, person, mood and affect Microbiology Past 72 Hours 05/18/18 01:35 Wound - Knee Gram Stain - Final 05/18/18 01:35 Wound - Knee Wound Culture - Final Coag Negative Staph Coag Negative Staph#2 Coag Negative Staph#3 Gram positive kalen 05/18/18 00:25 Blood Culture (Wb) - Anticubital Right Blood Culture - Preliminary No growth in 48 hours. 05/17/18 20:35 Blood Culture (Wb) - Arm Right Blood Culture - Preliminary No growth in 48 hours. Current Medications Calamine/Phenol (Calmoseptine Ointment) 1 applic TOPICAL BID IZABEL; Protocol Last Admin: 05/21/18 10:35 Dose: 1 applicatio Enoxaparin Sodium (Lovenox) 40 mg SC DAILY@1000 IZABEL Last Admin: 05/21/18 10:37 Dose: 40 mg Sodium Chloride () 250 mls @ 15 mls/hr IV .[id number] PRN PRN Reason: SALINE FLUSH Last Admin: 05/18/18 14:33 Dose: 15 mls/hr Magnesium Hydroxide (Milk Of Magnesia) 30 ml PO DAILY PRN PRN PRN Reason: Constipation Nystatin (Mycostatin Powder) 1 applic TOPICAL BID IZABEL; Protocol Last Admin: 05/21/18 10:35 Dose: 1 applicatio Sodium Chloride () 5 - 15 ml IV UD PRN PRN Reason: SALINE FLUSH Medical Necessity - Tobacco Use Smoking Status: Former smoker Assessment/Plan All Active Problems (Last Reviewed 11/17/17 @ 06:36 by Zeus Faust MD) Elevated blood pressure reading without diagnosis of hypertension (Acute) Cellulitis (Ruled-out) Cellulitis and abscess of leg (Ruled-out) 1. Debility due to super morbid obesity * also complicated by self-neglect. * Awaiting discharge to assisted. * 2. Chronic hypoxic respiratory failure due to obesity hypoventilation syndrome * on 2L of oxygen, which is his baseline * 3. Superficial baceterial and yeast overgrowth of LLE * Due to poor personal hygiene. * Wound culture of knee wound grew coagulase-negative staph and gram-positive kalen which was thought to be due to skin contamination. Has had no white cell count. * Need to monitor. * wound nurse on board 4. Chronic lymphedema: Stable. DVT prophylaxis: Lovenox. Code Visit Inpatient E&M: 52855 Subs Hosp L2
[2018-05-21 15:20] VITALS: O2SAT 93
[2018-05-21 15:46] VITALS: BP 138/72; PULSE 78; RESP 18; TEMP 36.6; O2SAT 96
[2018-05-21 21:08] VITALS: BP 131/79; PULSE 78; RESP 18; TEMP 36.6; O2SAT 97
[2018-05-22 03:20] VITALS: BP 135/66; PULSE 77; RESP 18; TEMP 36.4; O2SAT 96
[2018-05-22 07:56] VITALS: O2SAT 98
--- NOTE | 2018-05-22 09:52 | PCM.PN.HOSP ---
Subjective: Patient seen and examined. He has no complaints and had an uneventful night. Review of systems otherwise negative. Labs and vitals reviewed. Patient is awaiting placement. Vitals/I&O's: Vital Signs Temp Pulse Resp BP Pulse Ox 97.6 F L 77 18 135/66 H 98 05/22/18 03:20 05/22/18 03:20 05/22/18 03:20 05/22/18 03:20 05/22/18 07:56 Oxygen Flow Rate (L/min) 3 Oxygen Delivery Method Nasal Cannula Weight: 543 lb 0.012 oz Body Mass Index (BMI) 77.9 Finger Stick Blood Glucose 114 Intake and Output for Last 24 Hours 05/20/18 05/21/18 05/23/18 23:59 23:59 00:59 Intake Total 500 / 500 1150 / 1150 450 / 450 Output Total 900 / 900 Balance 500 / 500 250 / 250 450 / 450 General: Alert, Oriented x3, Cooperative, No apparent distress, - - Super morbid obesity. HEENT: Atraumatic, PERRLA, EOMI, Normocephalic Oral: Moist Mucosa Neck: Supple, No JVD, Negative Carotid Bruits Lungs: - - Mildly decreased breath sounds bibasilarly likely due to morbid obesity. On 2 L of oxygen. Cardiovascular: Regular rate, Regular Rhythm, Normal S1, Normal S2, No murmurs Abdomen: Bowel Sounds Present, Soft, Non Tender, Non-Distended, No Hepato-splenomegaly Extremities: No clubbing, No cyanosis, Capillary Refill Less than 3 Seconds, - - bilateral LE lymphedema Skin: - - hyperkeratinised, scaly skin on LEs Musculoskeletal: No Tenderness to Palpation of Joints or Extremities Lymphatic: No Cervical, Supraclavicular, or Inguinal Adenopathy Neurological: Cranial nerves II-XII grossly intact, Neuro grossly intact, Motor Exam 5/5 strength throughout Psych/Mental Status: Normal Affect, Appropriate, Alert and oriented to time, place, person, mood and affect Microbiology Past 72 Hours 05/18/18 01:35 Wound - Knee Gram Stain - Final 05/18/18 01:35 Wound - Knee Wound Culture - Final Coag Negative Staph Coag Negative Staph#2 Coag Negative Staph#3 Gram positive kalen 05/18/18 00:25 Blood Culture (Wb) - Anticubital Right Blood Culture - Preliminary No growth in 48 hours. 05/17/18 20:35 Blood Culture (Wb) - Arm Right Blood Culture - Preliminary No growth in 48 hours. Current Medications Calamine/Phenol (Calmoseptine Ointment) 1 applic TOPICAL BID IZABEL; Protocol Last Admin: 05/21/18 21:20 Dose: Not Given Enoxaparin Sodium (Lovenox) 40 mg SC DAILY@1000 IZABEL Last Admin: 05/21/18 10:37 Dose: 40 mg Sodium Chloride () 250 mls @ 15 mls/hr IV .[id number] PRN PRN Reason: SALINE FLUSH Last Admin: 05/18/18 14:33 Dose: 15 mls/hr Magnesium Hydroxide (Milk Of Magnesia) 30 ml PO DAILY PRN PRN PRN Reason: Constipation Nystatin (Mycostatin Powder) 1 applic TOPICAL BID IZABEL; Protocol Last Admin: 05/21/18 21:21 Dose: 1 applicatio Sodium Chloride () 5 - 15 ml IV UD PRN PRN Reason: SALINE FLUSH Medical Necessity - Tobacco Use Smoking Status: Former smoker Assessment/Plan All Active Problems (Last Reviewed 11/17/17 @ 06:36 by Zeus Faust MD) Elevated blood pressure reading without diagnosis of hypertension (Acute) Cellulitis (Ruled-out) Cellulitis and abscess of leg (Ruled-out) 1. Debility due to super morbid obesity also complicated by self-neglect. Awaiting discharge to halfway. 2. Chronic hypoxic respiratory failure due to obesity hypoventilation syndrome on 2-3L of oxygen, which is his baseline 3. Superficial baceterial and yeast overgrowth of LLE Due to poor personal hygiene. Wound culture of knee wound grew coagulase-negative staph and gram-positive kalen which was thought to be due to skin contamination. Has had no white cell count. wound nurse on board 4. Chronic lymphedema: Stable. DVT prophylaxis: Lovenox. Code Visit Inpatient E&M: 68564 Subs Hosp L2
--- NOTE | 2018-05-22 09:56 | PN_ITS ---
Subjective: Patient seen and examined. He has no complaints and had an uneventful night. Review of systems otherwise negative. Labs and vitals reviewed. Patient is awaiting placement. Vitals/I&O's: Vital Signs Temp Pulse Resp BP Pulse Ox 97.6 F L 77 18 135/66 H 98 05/22/18 03:20 05/22/18 03:20 05/22/18 03:20 05/22/18 03:20 05/22/18 07:56 Oxygen Flow Rate (L/min) 3 Oxygen Delivery Method Nasal Cannula Weight: 543 lb 0.012 oz Body Mass Index (BMI) 77.9 Finger Stick Blood Glucose 114 Intake and Output for Last 24 Hours 05/20/18 05/21/18 05/23/18 23:59 23:59 00:59 Intake Total 500 / 500 1150 / 1150 450 / 450 Output Total 900 / 900 Balance 500 / 500 250 / 250 450 / 450 General: Alert, Oriented x3, Cooperative, No apparent distress, - - Super morbid obesity. HEENT: Atraumatic, PERRLA, EOMI, Normocephalic Oral: Moist Mucosa Neck: Supple, No JVD, Negative Carotid Bruits Lungs: - - Mildly decreased breath sounds bibasilarly likely due to morbid obesity. On 2 L of oxygen. Cardiovascular: Regular rate, Regular Rhythm, Normal S1, Normal S2, No murmurs Abdomen: Bowel Sounds Present, Soft, Non Tender, Non-Distended, No Hepato- splenomegaly Extremities: No clubbing, No cyanosis, Capillary Refill Less than 3 Seconds, - - bilateral LE lymphedema Skin: - - hyperkeratinised, scaly skin on LEs Musculoskeletal: No Tenderness to Palpation of Joints or Extremities Lymphatic: No Cervical, Supraclavicular, or Inguinal Adenopathy Neurological: Cranial nerves II-XII grossly intact, Neuro grossly intact, Motor Exam 5/5 strength throughout Psych/Mental Status: Normal Affect, Appropriate, Alert and oriented to time, place, person, mood and affect Microbiology Past 72 Hours 05/18/18 01:35 Wound - Knee Gram Stain - Final 05/18/18 01:35 Wound - Knee Wound Culture - Final Coag Negative Staph Coag Negative Staph#2 Coag Negative Staph#3 Gram positive kalen 05/18/18 00:25 Blood Culture (Wb) - Anticubital Right Blood Culture - Preliminary No growth in 48 hours. 05/17/18 20:35 Blood Culture (Wb) - Arm Right Blood Culture - Preliminary No growth in 48 hours. Current Medications Calamine/Phenol (Calmoseptine Ointment) 1 applic TOPICAL BID IZBAEL; Protocol Last Admin: 05/21/18 21:20 Dose: Not Given Enoxaparin Sodium (Lovenox) 40 mg SC DAILY@1000 IZABEL Last Admin: 05/21/18 10:37 Dose: 40 mg Sodium Chloride () 250 mls @ 15 mls/hr IV .[id number] PRN PRN Reason: SALINE FLUSH Last Admin: 05/18/18 14:33 Dose: 15 mls/hr Magnesium Hydroxide (Milk Of Magnesia) 30 ml PO DAILY PRN PRN PRN Reason: Constipation Nystatin (Mycostatin Powder) 1 applic TOPICAL BID IZABEL; Protocol Last Admin: 05/21/18 21:21 Dose: 1 applicatio Sodium Chloride () 5 - 15 ml IV UD PRN PRN Reason: SALINE FLUSH Medical Necessity - Tobacco Use Smoking Status: Former smoker Assessment/Plan All Active Problems (Last Reviewed 11/17/17 @ 06:36 by Zeus Faust MD) Elevated blood pressure reading without diagnosis of hypertension (Acute) Cellulitis (Ruled-out) Cellulitis and abscess of leg (Ruled-out) 1. Debility due to super morbid obesity * also complicated by self-neglect. * Awaiting discharge to halfway. * 2. Chronic hypoxic respiratory failure due to obesity hypoventilation syndrome * on 2-3L of oxygen, which is his baseline * 3. Superficial baceterial and yeast overgrowth of LLE * Due to poor personal hygiene. * Wound culture of knee wound grew coagulase-negative staph and gram-positive kalen which was thought to be due to skin contamination. Has had no white cell count. * wound nurse on board 4. Chronic lymphedema: Stable. DVT prophylaxis: Lovenox. Code Visit Inpatient E&M: 53654 Subs Hosp L2
[2018-05-22] MEDS: Enoxaparin 40 MG/0.4 ML Syringe SC (10:47)
[2018-05-22 11:25] VITALS: BP 133/82; PULSE 78; RESP 18; TEMP 36.7; O2SAT 97
[2018-05-22 16:30] VITALS: BP 128/73; PULSE 80; RESP 18; TEMP 36.7; O2SAT 97
[2018-05-22] MEDS: Nystatin Powder 15gm Bottle 1 APPLIC TOPICAL (21:21)
[2018-05-22] MEDS: Menthol/Lanolin/Calamine/Znox 113 GM Tube 1 APPLIC TOPICAL (21:21)
[2018-05-22 21:22] VITALS: BP 128/86; PULSE 78; RESP 18; TEMP 36.8; O2SAT 95
[2018-05-23 02:20] VITALS: BP 120/70; PULSE 76; RESP 18; TEMP 36.7; O2SAT 94
[2018-05-23 07:56] VITALS: O2SAT 96
[2018-05-23 08:36] VITALS: BP 129/66; PULSE 77; RESP 18; TEMP 36.7; O2SAT 90
[2018-05-23 08:40] VITALS: PULSE 72; O2SAT 90
--- NOTE | 2018-05-23 09:14 | CASEMGMT ---
Social Work Note SW faxed updated clinicals to [facility]. Plan: [facility] pending pre-cert Apoorva Tuttle [employer], ENGINEERING TECHNICAL SPECIALIST
[2018-05-23 10:43] VITALS: BP 127/68; PULSE 77; RESP 18; TEMP 36.5; O2SAT 93
[2018-05-23] MEDS: Enoxaparin 40 MG/0.4 ML Syringe SC (10:47)
--- NOTE | 2018-05-23 12:30 | CASEMGMT ---
Social Work Note RAVEN received message from Lala at [facility] stating she received pre-cert and pt is able to discharge today. Lala states that pt's bariatric bed will be delivered by 4:30pm and requesting transporting to be arranged after 4:30. Physician updated. RAVEN faxed completed discharge paperwork to Lala at [facility] including transfer to extended care facility, signed medication list and any scripts. Originals in SNF folder and copy on pt's chart. PAS/RR completed in HENS. Originals in SNF folder and copy on pt's chart. RAVEN called [facility] and arranged for transportation via bariatric cot for 5:00pm. Transportation form on SNF folder and copy on pt's chart. RAVEN placed a call to Lala at [facility] and updated her on transportation time. RAVEN updated RN and pt on transportation time. Plan: Pt to discharge to [facility] with [facility] transporting via cot at 5:00pm Apoorva Tuttle [employer]AM [employer]ATTENER, WELDER 2ND SHIFT
--- NOTE | 2018-05-23 13:27 | PN_ITS ---
Subjective: Patient seen and examined. He has no complaints. Review of systems otherwise negative. Labs and vitals reviewed. Vitals/I&O's: Vital Signs Temp Pulse Resp BP Pulse Ox 97.7 F L 77 18 127/68 H 93 05/23/18 10:43 05/23/18 10:43 05/23/18 10:43 05/23/18 10:43 05/23/18 10:43 Oxygen Flow Rate (L/min) 2 Oxygen Delivery Method Room Air Weight: 543 lb 0.012 oz Body Mass Index (BMI) 77.9 Finger Stick Blood Glucose 114 Intake and Output for Last 24 Hours 05/21/18 05/22/18 05/23/18 22:59 23:59 23:59 Intake Total 420 / 420 Output Total Balance 420 / 420 General: Alert, Oriented x3, Cooperative, No apparent distress, - - Super morbid obesity. HEENT: Atraumatic, PERRLA, EOMI, Normocephalic Oral: Moist Mucosa Neck: Supple, No JVD, Negative Carotid Bruits Lungs: - - Mildly decreased breath sounds bibasilarly likely due to morbid obesity. On 2 L of oxygen. Cardiovascular: Regular rate, Regular Rhythm, Normal S1, Normal S2, No murmurs Abdomen: Bowel Sounds Present, Soft, Non Tender, Non-Distended, No Hepato- splenomegaly Extremities: No clubbing, No cyanosis, Capillary Refill Less than 3 Seconds, - - bilateral LE lymphedema Skin: - - hyperkeratinised, scaly skin on LEs Musculoskeletal: No Tenderness to Palpation of Joints or Extremities Lymphatic: No Cervical, Supraclavicular, or Inguinal Adenopathy Neurological: Cranial nerves II-XII grossly intact, Neuro grossly intact, Motor Exam 5/5 strength throughout Psych/Mental Status: Normal Affect, Appropriate, Alert and oriented to time, place, person, mood and affect Microbiology Past 72 Hours 05/18/18 00:25 Blood Culture (Wb) - Anticubital Right Blood Culture - Final No growth in 5 days. 05/17/18 20:35 Blood Culture (Wb) - Arm Right Blood Culture - Final No growth in 5 days. 05/18/18 01:35 Wound - Knee Gram Stain - Final 05/18/18 01:35 Wound - Knee Wound Culture - Final Coag Negative Staph Coag Negative Staph#2 Coag Negative Staph#3 Gram positive kalen Current Medications Calamine/Phenol (Calmoseptine Ointment) 1 applic TOPICAL BID IZABEL; Protocol Last Admin: 05/23/18 10:47 Dose: Not Given Enoxaparin Sodium (Lovenox) 40 mg SC DAILY@1000 IZABEL Last Admin: 05/23/18 10:47 Dose: 40 mg Sodium Chloride () 250 mls @ 15 mls/hr IV .[id number] PRN PRN Reason: SALINE FLUSH Last Admin: 05/18/18 14:33 Dose: 15 mls/hr Magnesium Hydroxide (Milk Of Magnesia) 30 ml PO DAILY PRN PRN PRN Reason: Constipation Nystatin (Mycostatin Powder) 1 applic TOPICAL BID IZABEL; Protocol Last Admin: 05/23/18 10:47 Dose: Not Given Sodium Chloride () 5 - 15 ml IV UD PRN PRN Reason: SALINE FLUSH Medical Necessity - Tobacco Use Smoking Status: Former smoker Assessment/Plan All Active Problems (Last Reviewed 11/17/17 @ 06:36 by Zeus Faust MD) Elevated blood pressure reading without diagnosis of hypertension (Acute) Cellulitis (Ruled-out) Cellulitis and abscess of leg (Ruled-out) 1. Debility due to super morbid obesity * also complicated by self-neglect. * Awaiting discharge to residential. * 2. Chronic hypoxic respiratory failure due to obesity hypoventilation syndrome * on 2-3L of oxygen, which is his baseline * 3. Superficial baceterial and yeast overgrowth of LLE * Due to poor personal hygiene. * Wound culture of knee wound grew coagulase-negative staph and gram-positive kalen which was thought to be due to skin contamination. Has had no white cell count. * wound nurse on board 4. Chronic lymphedema: Stable. DVT prophylaxis: Lovenox. Code Visit OBSV E&M: 94659 Subsequent observation care L2
--- NOTE | 2018-05-23 13:51 | PCM.TXEXTCAR ---
- Diet 05/18/18 18:32 ADA [Diet: Calorie Controlled] Type of Dietary Supplement:: Ensure Complete Is pt able to select menu?: Yes How many daily calories?: 1800 calorie - Routine Orders/Code Status Enema Type: Fleetz Enema Frequency: Daily PRN Suppository Type: Dulcolax 10mg Suppository Frequency: Daily PRN O2 Liters per Minute: 2 O2 Frequency: Continuous Keep PO Greater than or Equal to (%): 90 Code Status: Full Code - Wound(s) left leg Wound Type: Pressure Injury left outer abdominal fold Wound Type: scattered open areas d/t moisture Dressing Change: InterDry placed left inner abdominal fold Wound Type: scattered open areas d/t moisture Dressing Change: InterDry right posterior thigh fold Wound Type: Abrasion left abdomen under skin fold (not in actual fold Wound Type: open area most likely d/t moisture Dressing Change: placed interdry - Therapies Weight Bearing: Weight bearing as tolerated Physical Therapy: Eval and Treat Occupational Therapy: Eval and Treat - Allergies/Procedures Done in Hospital Allergies/Adverse Reactions: Allergies No Known Allergies Allergy (Verified 05/17/18 18:55) Procedures: None - Type of Care/Length of Stay Estimated LOS: More Than 30 Days Type of Care Needed: Skilled Rehab Potential: Good Prognosis: Good - Additional Orders/Day of Discharge Day of Discharge: 05/23/18 - Dietary and Speech Recommendations Dietitian Recommendations/Changes: Would benefit from 2400 calorie controlled diet and long-term wt loss. Rec follow-up w/ outpatient RD for diet education and wt loss if interested. Will d/c Ensure w/ medpass and limit serving of Ensure w/ meals to 120mL. Would best benefit from 1 packet Awyne BID instead of Ensure for wound healing. - Follow Up Care Primary Care Physician: Fei Levi, TILA-C [Primary Care Provider] - Please follow up with your Primary Care Physician in: one week
--- NOTE | 2018-05-23 13:52 | PCM.DC.SUM ---
Discharge Date and Diagnosis Date of Admission: 05/17/18 Date of Discharge: 05/23/18 - Primary Discharge Diagnosis Debility lymphedema self neglect - Secondary Discharge Diagnosis Chronic Problems (Last Reviewed 11/17/17 @ 06:36 by Zeus Faust MD) Self neglect (Chronic) Chronic acquired lymphedema (Chronic) Morbid obesity with BMI of 70 and over, adult (Chronic) BMI 82 260 kg Alcohol abuse (Chronic) Polysubstance abuse (Chronic) Debility (Chronic) Hospital Course and Treatment Consultations 05/17/18 23:45 Consult: Onc/Wound/crm manager Routine Comment: Operations: None Procedures: None Summary of Care Provided: The patient is a 47 year old M with a history of super morbid obesity and bilateral lower extremity lymphedema. He was admitted through the ED on 05/17/2018 with a complaint of questionable cellulitis of his lower extremity. He had been assessed by the nurse prior to him being admitted to a skilled nursing. However he had ulcerations on his lower extremities and so he was brought to the ED to be managed for cellulitis. He also had a low-grade fever on admission. Patient had been unable to care for himself due to his super morbid obesity. He also had no leukocytosis. He was initially admitted to be managed for cellulitis and lymphedema and was started on IV antibiotics. However further review of ulcerations by wound care and is revealed that it was most likely due to a yeast infection and cellulitis was ruled out. Antibiotics were therefore stopped. Patient remained stable and was discharged to his skilled nursing in [place] on 05/23/2018. His follow-up with his primary care doctor. Patient seen and examined prior to discharge. He had no complaints and felt well. Review of systems otherwise negative. Labs and vitals reviewed. Medications reviewed and reconciled. o/e: Vital Signs Height 5 ft 10 in Weight: 543 lb 0.012 oz Weight in Pounds 543.0 lbs Pulse Ox 95 Temperature 97.9 F Pulse Rate 87 Respiratory Rate 18 Blood Pressure 132/85 Blood Pressure Position Semi-Fowlers [] General: Alert, Oriented x3, Cooperative, No apparent distress, - - Super morbid obesity. HEENT: Atraumatic, PERRLA, EOMI, Normocephalic Oral: Moist Mucosa Neck: Supple, No JVD, Negative Carotid Bruits Lungs: - - Mildly decreased breath sounds bibasilarly likely due to morbid obesity. On 2 L of oxygen. Cardiovascular: Regular rate, Regular Rhythm, Normal S1, Normal S2, No murmurs Abdomen: Bowel Sounds Present, Soft, Non Tender, Non-Distended, No Hepato-splenomegaly Extremities: No clubbing, No cyanosis, Capillary Refill Less than 3 Seconds, - - bilateral LE lymphedema Skin: - - hyperkeratinised, scaly skin on LEs Musculoskeletal: No Tenderness to Palpation of Joints or Extremities Lymphatic: No Cervical, Supraclavicular, or Inguinal Adenopathy Neurological: Cranial nerves II-XII grossly intact, Neuro grossly intact, Motor Exam 5/5 strength throughout Psych/Mental Status: Normal Affect, Appropriate, Alert and oriented to time, place, person, mood and affect Plan as discussed above. - Physical Exam Vital Signs Temp Pulse Resp BP Pulse Ox 97.7 F L 77 18 127/68 H 93 05/23/18 10:43 05/23/18 10:43 05/23/18 10:43 05/23/18 10:43 05/23/18 10:43 Oxygen Flow Rate (L/min) 2 Oxygen Delivery Method Room Air Weight: 543 lb 0.012 oz Body Mass Index (BMI) 77.9 Finger Stick Blood Glucose 114 Intake and Output for Last 24 Hours 05/21/18 05/22/18 05/23/18 22:59 23:59 23:59 Intake Total 420 / 420 Output Total Balance 420 / 420 Microbiology Past 72 Hours 05/18/18 00:25 Blood Culture - Final Blood Culture (Wb) - Anticubital Right No growth in 5 days. 05/17/18 20:35 Blood Culture - Final Blood Culture (Wb) - Arm Right No growth in 5 days. 05/18/18 01:35 Gram Stain - Final Wound - Knee Wound Culture - Final Coag Negative Staph Coag Negative Staph#2 Coag Negative Staph#3 Gram positive kalen Discharge Diet: Low fat/ Low Cholesterol Call your doctor if you observe: Shortness of breath, Swelling in the ankles Home Medications: Medications to take at Discharge Cholecalciferol (Vitamin D3) [Vitamin D3] 50,000 units PO QWEEK 09/12/17 Primary Care Physician: Fei Levi, TILA-C [Primary Care Provider] - Please follow up with your Primary Care Physician in: one week Disposition: [facility] facility Minutes spent on discharge:: 45 Patient Condition:: Stable Medical Necessity - Tobacco Use Smoking Status: Former smoker Meaningful Use Info Meaningful Use Diagnoses (Choose all that apply): None applicable Code Visit Inpatient E&M: 24129 Disch Hosp
--- NOTE | 2018-05-23 13:57 | DS.PCM_ITS ---
Discharge Date and Diagnosis Date of Admission: 05/17/18 Date of Discharge: 05/23/18 - Primary Discharge Diagnosis Debility lymphedema self neglect - Secondary Discharge Diagnosis Chronic Problems (Last Reviewed 11/17/17 @ 06:36 by Zeus Faust MD) Self neglect (Chronic) Chronic acquired lymphedema (Chronic) Morbid obesity with BMI of 70 and over, adult (Chronic) BMI 82 260 kg Alcohol abuse (Chronic) Polysubstance abuse (Chronic) Debility (Chronic) Hospital Course and Treatment Consultations 05/17/18 23:45 Consult: Onc/Wound/police captain senior Routine Comment: Operations: None Procedures: None Summary of Care Provided: The patient is a 47 year old M with a history of super morbid obesity and bilateral lower extremity lymphedema. He was admitted through the ED on 05/17/2018 with a complaint of questionable cellulitis of his lower extremity. He had been assessed by the nurse prior to him being admitted to a half-way. However he had ulcerations on his lower extremities and so he was brought to the ED to be managed for cellulitis. He also had a low-grade fever on admission. Patient had been unable to care for himself due to his super morbid obesity. He also had no leukocytosis. He was initially admitted to be managed for cellulitis and lymphedema and was started on IV antibiotics. However further review of ulcerations by wound care and is revealed that it was most likely due to a yeast infection and cellulitis was ruled out. Antibiotics were therefore stopped. Patient remained stable and was discharged to his half-way in [place] on 05/23/2018. His follow-up with his primary care doctor. Patient seen and examined prior to discharge. He had no complaints and felt well. Review of systems otherwise negative. Labs and vitals reviewed. Medications reviewed and reconciled. o/e: Vital Signs Height 5 ft 10 in Weight: 543 lb 0.012 oz Weight in Pounds 543.0 lbs Pulse Ox 95 Temperature 97.9 F Pulse Rate 87 Respiratory Rate 18 Blood Pressure 132/85 Blood Pressure Position Semi-Fowlers [] General: Alert, Oriented x3, Cooperative, No apparent distress, - - Super morbid obesity. HEENT: Atraumatic, PERRLA, EOMI, Normocephalic Oral: Moist Mucosa Neck: Supple, No JVD, Negative Carotid Bruits Lungs: - - Mildly decreased breath sounds bibasilarly likely due to morbid obesity. On 2 L of oxygen. Cardiovascular: Regular rate, Regular Rhythm, Normal S1, Normal S2, No murmurs Abdomen: Bowel Sounds Present, Soft, Non Tender, Non-Distended, No Hepato- splenomegaly Extremities: No clubbing, No cyanosis, Capillary Refill Less than 3 Seconds, - - bilateral LE lymphedema Skin: - - hyperkeratinised, scaly skin on LEs Musculoskeletal: No Tenderness to Palpation of Joints or Extremities Lymphatic: No Cervical, Supraclavicular, or Inguinal Adenopathy Neurological: Cranial nerves II-XII grossly intact, Neuro grossly intact, Motor Exam 5/5 strength throughout Psych/Mental Status: Normal Affect, Appropriate, Alert and oriented to time, place, person, mood and affect Plan as discussed above. - Physical Exam Vital Signs Temp Pulse Resp BP Pulse Ox 97.7 F L 77 18 127/68 H 93 05/23/18 10:43 05/23/18 10:43 05/23/18 10:43 05/23/18 10:43 05/23/18 10:43 Oxygen Flow Rate (L/min) 2 Oxygen Delivery Method Room Air Weight: 543 lb 0.012 oz Body Mass Index (BMI) 77.9 Finger Stick Blood Glucose 114 Intake and Output for Last 24 Hours 05/21/18 05/22/18 05/23/18 22:59 23:59 23:59 Intake Total 420 / 420 Output Total Balance 420 / 420 Microbiology Past 72 Hours 05/18/18 00:25 Blood Culture - Final Blood Culture (Wb) - Anticubital Right No growth in 5 days. 05/17/18 20:35 Blood Culture - Final Blood Culture (Wb) - Arm Right No growth in 5 days. 05/18/18 01:35 Gram Stain - Final Wound - Knee Wound Culture - Final Coag Negative Staph Coag Negative Staph#2 Coag Negative Staph#3 Gram positive kalen Discharge Diet: Low fat/ Low Cholesterol Call your doctor if you observe: Shortness of breath, Swelling in the ankles Home Medications: Medications to take at Discharge Cholecalciferol (Vitamin D3) [Vitamin D3] 50,000 units PO QWEEK 09/12/17 Primary Care Physician: Fei Levi, TILA-C [Primary Care Provider] - Please follow up with your Primary Care Physician in: one week Disposition: Halfway facility Minutes spent on discharge:: 45 Patient Condition:: Stable Medical Necessity - Tobacco Use Smoking Status: Former smoker Meaningful Use Info Meaningful Use Diagnoses (Choose all that apply): None applicable Code Visit Inpatient E&M: 70965 Disch Hosp
[2018-05-23 15:08] VITALS: BP 132/85; PULSE 87; RESP 18; TEMP 36.6; O2SAT 95
== END 2018-05-23 17:26 | disposition skilled nursing facility (03) ==
LOC: ED 20:08 → MS3 23:08
PROVIDERS: Admitting Provider Student in an Organized Health Care Education/Training Program; Emergency Provider Emergency Medicine; Family Provider Nurse Practitioner Family; PCP Nurse Practitioner Family; Visit Provider Student in an Organized Health Care Education/Training Program
DX: I89.0 Lymphedema, not elsewhere classified (principal); Z68.45 Body mass index [BMI] 70 or greater, adult; Z71.3 Dietary counseling and surveillance; Z74.01 Bed confinement status; E65 Localized adiposity; E55.9 Vitamin D deficiency, unspecified; Z87.891 Personal history of nicotine dependence; B37.2 Candidiasis of skin and nail; J96.11 Chronic respiratory failure with hypoxia; Z99.81 Dependence on supplemental oxygen; R03.0 Elevated blood-pressure reading, without diagnosis of hypertension; R46.0 Very low level of personal hygiene; E66.2 Morbid (severe) obesity with alveolar hypoventilation
CPT/HCPCS: 36415; 80048; 80076; 81001; 83690; 85025; 87040; 87070; 87205; 96361; 96365; 96366; 96367; 96372; 96375; 96376; 97110; 97162; 97165; 97530; 97802; 99218; 99285; J7030; J7040; J7050; A4216; G0378; J2405

== ENCOUNTER 2018-09-05 17:50 | Outpatient (RCR) | payer MEDICAID, SELFPAY ==
--- NOTE | 2018-10-10 08:37 | HP.OTEVAL_ITS ---
Patient's Visit Information RAMY BARKLEY is a 47 year old M, referred to Occupational Therapy by Fei Levi, TILA-C, with a diagnosis of LE lymphedema. Date of Evaluation: 09/05/18 Occupational Therapist: Deborah Kearney, CHOLOR/Stanley, CHT - Subjective Subjective: Pt States he continues to struggle with lymphedema in bilateral LE- pt states he was using the velcro closure devices-but has not been for about a year or more- pt states he does have a compression pump but he has been unable to use for about a year and a half- pt states attending therapy is very difficult for him as he needs to rely on others for assist with transportation, mobility outside of his home is very difficult for him. Patient lives with his mother and states his mother has arthritis and is not able to care for him. Patient states he is unable to care for himself and is unable to clean himself or perform any activities of daily living on account of his size. Pt states he is unable to wrap his legs or put compression wraps on due to his size. pt is hopeful a home health company will be able to assist him with wraps or he can get admited to facility that can assist him in lymphedema as he struggles with getting out of his home. - Objective Concerns: pt demo with need for more intensive lymphedema tx. would benefit from skilled facility with staff trained in lymphedema mt. vs out-pt due to pts expressed concerns with being able to leave his home. - Lymphedema (Circumferential Measure) Mid-foot: Right 28cm Left 28cm Ankle: Right 33cm Left 34cm Lower calf: Right 43cm left 45cm Largest calf: Right 57cm left 71cm Below knee: Right 58cm left 81cm Above knee: Right 72cm left 85cm Lower Exremity Comments: pt large individual and demo with large pendulum abdomen making mobility difficult. skin has changed in texture and palpation skin is tight. Pt demo with stage III lymphedema. - Lower Limb Functional Index Lower Extremity Functional Score: 7 - Goals Demonstrate a 20% reduction in edema by d/c: Yes Demonstrate adequate knowledge of self-bangaging by 1st week: Yes Demonstrate adequate knowledge of self-massage by 2nd week: Yes Demonstrate adequate knowledge skin care/prec by 2nd week: Yes Demonstrate adequate knowledge therapeutic exercises by d/c: Yes Select approp compression garment w/donning/care/wear by d/c: Yes Voice need to replace compression garment every 4-6mo by dc: Yes - Rehabilitation General Assessment: Pt demo with stage III lymphedema, pt was ed. on all dx and treatments- pt has been not been using wraps and has not used lympha press in the past year or two years- he is not sure it will work for him-ed. pt on giving the contact information to therapist so I can have representive from the pump company to check the pump for the pt. pt ed. on need of wraps and use of pump to mtg his lymphedema- pt demo with stage III lymphedema and would benefit from a skilled facility to address his lymphedema -pt agrees to this plan of care as he states he will not have assistance to follow with wraps or other compression devices to sucessful with wraps. Therapist contacted [facility] [place] to see if insurance would cover the Velcro closure [place] wraps- was notified by Jessica that his insurance does not cover the garment-. ( per note on 08/03/18, pt was institutionalized in long-term care/rehab facility where he recived treatment for his lymphedema. However since being discharged home his lymphedema has worsened. pt has not been able to attend outpatient therapy for lymphedmea secondary to inability to obtain transportation. Pt presents to the dr inqureing about other treatment options- did offer suggestion of ambulance/transportation but pt states most lift on transport do not support more than 500 lbs. pt is currently 524#. Due to struggles with transportation and pts difficulty to mtg his lymphedema) - therapist ayana'c in-pt admit to skilled facility that has staff trained in treatment for lymphedema mtg. due to limited transportation options. Rehabilitation Potential: Good - Anticipated Interventions Anticipated Interventions: Manual Lymph Drainage, Education re Life-long lymphedema Management, Caregiver Training - Visit Plan TEXT: Thank you for the opportunity to evaluate your patient. For Medicare and Medicare HMO plans, please review the plan of care and approve it. It will need to be FAXED BACK to us at [phone] for Medicare purposes. Please let me know if there are questions or concerns regarding this plan of care. Physician Signature: Date:
== END 2018-09-05 19:00 | disposition home or self-care (01) ==
LOC: OT 17:50
PROVIDERS: Family Provider Nurse Practitioner Family; PCP Nurse Practitioner Family; Referring Provider Nurse Practitioner Family; Visit Provider Nurse Practitioner Family
DX: I89.0 Lymphedema, not elsewhere classified (principal)
CPT/HCPCS: 97166

== ENCOUNTER → 2018-09-16 20:03 | Outpatient (CLI) | payer MEDICAID, SELFPAY ==
[2018-09-16] MEDS: Zolpidem Tartrate 5 MG Tablet PO (21:20)
== END ==
PROVIDERS: Family Provider Nurse Practitioner Family; PCP Nurse Practitioner Family; Referring Provider Nurse Practitioner Family; Visit Provider Nurse Practitioner Family
DX: G47.33 Obstructive sleep apnea (adult) (pediatric) (principal)
CPT/HCPCS: 95811